=== PATIENT | male | born 1980 | race Caucasian/White ===

== ENCOUNTER 2020-02-07 20:00 | Outpatient (CLI) | payer OTHER, SELFPAY | END 2020-02-07 20:01 | disposition home or self-care (01) | LOC: SLEEP 02-08 08:25 | PROVIDERS: Family Provider Emergency Medicine Emergency Medical Services; Visit Provider Emergency Medicine Emergency Medical Services | DX: G47.33 Obstructive sleep apnea (adult) (pediatric) (principal); R06.83 Snoring; R53.83 Other fatigue | CPT/HCPCS: 95811 ==

== ENCOUNTER → 2021-01-28 08:18 | Outpatient (BNVA) | payer OTHER, SELFPAY | PROVIDERS: Family Provider Emergency Medicine Emergency Medical Services; PCP Emergency Medicine Emergency Medical Services; Referring Provider Emergency Medicine Emergency Medical Services; Visit Provider Anesthesiology Pain Medicine | DX: M54.12 Radiculopathy, cervical region (principal); M47.812 Spondylosis without myelopathy or radiculopathy, cervical region; M79.621 Pain in right upper arm; M79.622 Pain in left upper arm; F17.210 Nicotine dependence, cigarettes, uncomplicated; Z79.891 Long term (current) use of opiate analgesic | CPT/HCPCS: 99205 ==

== ENCOUNTER 2021-02-15 15:45 | Outpatient (CLI) | payer OTHER, SELFPAY ==
--- NOTE | 2021-02-15 16:00 | MR_ITS ---
WS: [id number] MRI CERVICAL SPINE NONCONTRAST HISTORY: M54.12 - Radiculopathy, cervical region COMPARISON: 04/04/2019 Technique: Multiplanar, multisequence noncontrast imaging of the cervical spine. Significant artifact at the C5-6 level obscuring detail to the vertebral body and the cervical cord. Prior anterior cervical fusion at the C5-6 level. No acute fracture or edema in the remaining visuali zed bodies. No disc desiccation. Craniocervical junction, C1 and C2 relationship, odontoid process and soft tissues are normal. C2-C3: Small LEFT foraminal disc osteophyte complex causing mild LEFT foraminal stenosis. C3-C4: Mild osteophytic ridging and small disc osteophyte complex causing mild LEFT foraminal narrowi ng. C4-C5: Disc or disc osteophyte complex is moderate extending into the proximal LEFT foramen and abutt ing the LEFT lateral thecal sac and cord. Moderate encroachment upon the exiting nerve root on the LE FT. C5-C6: This disc level is completely obscured by artifact. C6-C7: Very mild osteophytic ridging and/or disc bulging. No significant stenosis. C7-T1: Normal. Paraspinal soft tissue are normal. MR/MR cervical spin wo con* [id number] IMPRESSION: 1. Status post anterior cervical fusion at C5-6. There is significant hardware artifact disc at this level obscuring detail. Significant disc protrusions or stenosis cannot be excluded at the C5-6 level. 2. Disc with disc osteophyte complex causing moderate stenosis and encroachmen t upon the proximal LEFT foramen and mild abutment on the LEFT lateral thecal s ac and cord at C4-5. Not evident on the prior study. 3. Mild LEFT foraminal stenosis at C2-3 and C3-4 due to disc and osteophyte di crispine.
== END 2021-02-15 15:46 | disposition home or self-care (01) ==
LOC: RADSHAW 15:48
PROVIDERS: PCP Emergency Medicine Emergency Medical Services; Visit Provider Anesthesiology Pain Medicine
DX: M54.12 Radiculopathy, cervical region (principal); M43.22 Fusion of spine, cervical region; M25.78 Osteophyte, vertebrae; M48.02 Spinal stenosis, cervical region
CPT/HCPCS: 72141

== ENCOUNTER → 2021-02-21 08:30 | Outpatient (BNVA) | payer OTHER, SELFPAY | PROVIDERS: PCP Emergency Medicine Emergency Medical Services; Visit Provider Anesthesiology Pain Medicine | DX: G89.29 Other chronic pain (principal); M47.812 Spondylosis without myelopathy or radiculopathy, cervical region; M54.12 Radiculopathy, cervical region; M43.12 Spondylolisthesis, cervical region; F17.210 Nicotine dependence, cigarettes, uncomplicated | CPT/HCPCS: 99215 ==

== ENCOUNTER 2021-02-21 09:20 | Outpatient (CLI) | payer OTHER, SELFPAY ==
--- NOTE | 2021-02-21 09:28 | XR_ITS ---
WS: [id number] CERVICAL SPINE 5 VIEWS HISTORY: M47.812 - Spondylosis without myelopathy or radiculopathy... COMPARISON: None available. Lateral, AP and flexion-extension views. Marked straightening of the normal cervical lordosis. Interbody spacer at C5-6. With flexion and exte nsion no instability. No change in alignment of the interbody spacer. The odontoid is not imaged. No fractures. No soft tissue abnormality. XR/XR cervical spine 4-5V [id number] IMPRESSION: 1. Marked straightening of the normal cervical lordosis. 2. No cervical instability. 3. Interbody spacer at C5-6 remains in good position.
== END 2021-02-21 09:21 | disposition home or self-care (01) ==
PROVIDERS: PCP Emergency Medicine Emergency Medical Services; Visit Provider Anesthesiology Pain Medicine
DX: M47.812 Spondylosis without myelopathy or radiculopathy, cervical region (principal)
CPT/HCPCS: 72050

== ENCOUNTER → 2021-03-07 08:59 | Outpatient (BNVA) | payer OTHER, SELFPAY | PROVIDERS: PCP Emergency Medicine Emergency Medical Services; Visit Provider Anesthesiology Pain Medicine | DX: G89.29 Other chronic pain (principal); M47.812 Spondylosis without myelopathy or radiculopathy, cervical region; M54.12 Radiculopathy, cervical region; M79.601 Pain in right arm; M79.602 Pain in left arm; Z79.891 Long term (current) use of opiate analgesic | CPT/HCPCS: 99214 ==

== ENCOUNTER → 2021-03-18 13:41 | Outpatient (BNVA) | payer OTHER, SELFPAY | PROVIDERS: PCP Emergency Medicine Emergency Medical Services; Visit Provider Orthopaedic Surgery | DX: Z01.818 Encounter for other preprocedural examination (principal); Z20.822 Contact with and (suspected) exposure to COVID-19 | CPT/HCPCS: 87635 ==

== ENCOUNTER 2021-03-22 05:28 | Day surgery (SDC) | payer OTHER, SELFPAY ==
[2021-03-18 12:18] VITALS: BMI 40.7
--- NOTE | 2021-03-18 12:21 | ANES.PREANE2 ---
Pre-Anesthetic Assessment Pre-Anesthetic Assessment: Height/Weight: Height 1.8 m Weight 132.449 kg Proposed Procedure: Operation Date: 03/22/21 07:00 Proposed Procedures p posterior spine fusion at C5-6 52182, 04506, 29049, 35648, M47.812(Not Applicable) - Guy Bolanos, DO Was Beta Rock taken within 24 hours: N/A Was Clonidine taken within 24 hours: Yes Social: Social History: Tobacco and No alcohol Exam: Pre-Anes Outpt Exam: alert, oriented x 3 and regular rate & rhythm Airway: Submandibular: WNL Cervical ROM: WNL MP: 2 Dentition: Chipped Pulmonary: Pulmonary: COPD CV/HEM: CV/HEM: HTN Metabolic: Metabolic: Morbid obesity Musc/skel: Musc/skel: Lower Back Pain Anesthetic Plan: ASA status: 3 Anesthesia: General Risk of > 500 ml blood loss (7ml/kg in children): No PFSH Anesthesia PFSH: Family History Grandmother Diabetes Cancer Social History Alcohol intake: former Data Anesthesia Cardiac Studies: No Data to Display
[2021-03-22] VITALS (14 sets, daily range): BP systolic 123–165; BP diastolic 84–115; PULSE 91–109; RESP 12–26; TEMP 36.1–36.9; O2SAT 92–98
--- NOTE | 2021-03-22 | SCC_ITS ---
Procedure Done: 1. C5-C6 posterior spine fusion 2. C5-C6 instrumentation 3. Laminectomy C5/6 with partial facetectomy and foraminotomy 4. Autograft 5. Allograft 6. application and removal of Clark tongs 14.1 seconds of fluoroscopic guidance, for a cumulative dose of 8.96 mGy, was provided to Dr. Bolanos by the radiology department. C-arm images of the cervical spine were saved for the patient's permanent record. RAINAD
--- NOTE | 2021-03-22 | XR_ITS ---
WS: [id number] XR cervical spine 3V* [id number] REASON FOR EXAM: cervical fusion FINDINGS: Previous placement of intervertebral body device at C5-C6. There is now been pedicle screw placement at C5 and C6 bilaterally. Surgical appliances all appear in proper position and alignment. XR/XR cervical spine 3V* [id number] IMPRESSION: Pedicle screw placement at C5-C6 as above.
[2021-03-22] MEDS: sodium chloride 0.9% 1,000 ML 30 ML IV (06:26)
[2021-03-22] MEDS: fentaNYL 50 mcg/mL INJ 2mL 100 MCG IVP (06:35)
--- NOTE | 2021-03-22 06:42 | W.PM.OPSUD ---
Surgery/Procedure H&P Update DATE OF PROCEDURE: March 22, 2021 DATE H&P PERFORMED: 03/05/21 H&P UPDATE INFORMATION: I have reviewed H&P completed within last 30 days, I have examined patient prior to procedure and No changes to prior documentation PREOP DIAGNOSIS: cervical stenosis PLANNED PROCEDURE: Operation Date: 03/22/21 07:00 Proposed Procedures p posterior spine fusion at C5-6 92233, 85436, 83658, 69341, M47.812(Not Applicable) - Guy Bolanos DO
--- NOTE | 2021-03-22 07:21 | P.ANESUD_ITS ---
Pre-Anesthetic Update Pre-Anesthetic Assessment: Date of Surgery/Procedure: 03/22/21 Preop Ericka gnosis: cervical stenosis Proposed Procedure: Operation Date: 03/22/21 07:00 Proposed Procedures p posterior spine fusion at C5-6 90960, 60278, 19452, 69537, M47.812(Not Applicable) - Guy Bolanos, DO Any changes to Pre-Anesthetic Assessment?: No Last Intake: Intake Last Liquid Date 03/21/21 Last Liquid Time 18:00 Last Solid Date 03/21/21 Last Solid Time 18:00 Vitals: Temperature 97.6 F 03/22/21 06:02 Temperature Source Temporal Artery S can 03/22/21 06:02 Pulse Rate 109 H 03/22/21 06:02 Respiratory Rate 16 03/22/21 06:35 Respiratory Effort 03/22/21 06:35 Respiratory Depth Normal 03/22/21 06:35 Respiratory Patter n Apnea 03/22/21 06:35 Blood Pressure 132/96 03/22/21 06:02 Blood Pressure Amelia n 108 03/22/21 06:02 Pulse Oximetry 96 03/22/21 06:02 Oxygen Delivery Me thod 03/22/21 06:02 Exam: Pre-Anes Outpt Exam: alert, oriented x 3, clear to auscultation bilat erally and regular rate & rhythm Cardiac Studies: No Data to Display
[2021-03-22] MEDS: vancomycin 1,000 MG SDV 1000 MG (08:02)
[2021-03-22] MEDS: neomycin-poly-bacitracin oint 28 gm 28 APPLIC (08:02)
--- NOTE | 2021-03-22 09:53 | P.OP_ITS ---
Operative Report Date of procedure: March 22, 2021 Pre-op Diagnosis: cervical stenosis Post-op diagnosis: same Procedure Done: 1. C5-C6 posterior spine fusion 2. C5-C6 instrumentation 3. Laminectomy C5/6 with partial facetectomy and foraminotomy 4. Autograft 5. Allograft 6. application and removal of Clark tongs Surgeon: Guy Bolanos Anesthesia: General Estimated blood loss (mL): 50 Condition: stable Disposition: PACU Procedure: 1. C5-C6 posterior spine fusion 2. C5-C6 instrumentation 3. Laminectomy C5/6 with partial facetectomy and foraminotomy 4. Autograft 5. Allograft 6. application and removal of Clark tongs Patient is brought to the operative suite after undergoing anesthesia he had application of the Clark tongs. This was done by placing the tongs superior to the external auditory meatus and applying pressure. Once these were attached then patient was flipped into the prone position all areas impingement were well-padded. Patient's head was attached to the table. The posterior cervical neck was prepped and draped in normal sterile fashion. Skin incision made over the C5-6 layer. Subperiosteal dissection was made from C5-C6 out to the edges of the lateral masses. Retractors were placed. Then screws were placed at C5 and C6 bilaterally as are lateral mass screws. This was done by using a drill. Followed by placing screws these were 16mm screws placed bilaterally at both C5 and C6. Then attention was brought to performing the laminectomy. Rongeur was used to take down the spinous process and then the high-speed drill using a microscope was brought in was used to perform the laminectomy once the laminectomy was completed this was completed with the Kerrison rongeurs. The ligamentum flavum was taken down from C5-C6. Then attention was brought to the left facet joint. The medial aspect of facet joints taken down with a high- speed bur and Kerrison rongeurs. And then the foramen was opened using a 2 and 3 Kerrison. To allow for the C6 nerve root to be completely freed up. Once is complete freed up then a curved curette was used to trace it out the foramen and once it was felt that the C6 nerve was completely freed up wounds were irrigated. The lateral gutters of the lateral masses C5 and 6 were decorticated using high-speed bur. And the auto and allograft were packed this was osteoamp mixed with the autograft. And then wounds were closed with Vicryl 0-strata fix 2 -0 strata fix and nylon suture. Sterile dressing dressings were applied. Patient was then flipped in the supine position the Clark tongs were removed and patient had a cervical collar attached and then patient was transferred to the PACU in stable condition.
[2021-03-22] MEDS: HYDROmorphone 1 mg/mL INJ 1 mL 0.5 MG IVP ×2 (10:18→10:28)
[2021-03-22] MEDS: HYDROcodone-acetaminophen 10-325 mg Tablet 1 TAB PO (11:02)
--- NOTE | 2021-03-22 11:38 | ANE.PACU2 ---
Inpatient post-anesthesia follow up: Airway intact: Yes Vital signs: Temperature 98.3 F Pulse Rate 91 Respiratory Rate 16 Blood Pressure 123/92 Pulse Oximetry 95 Oxygen Delivery Me thod Room Air Oxygen Flow Rate 8 Fraction of Inspir ed Oxygen Hydration adequate: Yes Nausea and vomiting: No Pain level: 3 Mental status: Baseline
== END 2021-03-22 12:05 | disposition home or self-care (01) ==
PROVIDERS: PCP Emergency Medicine Emergency Medical Services; Visit Provider Orthopaedic Surgery
PROC: (CPT 20930; principal; 2021-03-22 07:00)
DX: M48.02 Spinal stenosis, cervical region (principal); J44.9 Chronic obstructive pulmonary disease, unspecified; I10 Essential (primary) hypertension; E66.01 Morbid (severe) obesity due to excess calories; Z68.41 Body mass index [BMI] 40.0-44.9, adult; Z83.3 Family history of diabetes mellitus
CPT/HCPCS: 20930; 20936; 22600; 22614; 22840; 22853; 63045; 72040; 76000; 96374; 97110; C1713; C9359; J0330; J0690; J1100; J1170; J2250; J2405; J2704; J3010; J3370; J3490; J7030; L0174

== ENCOUNTER 2021-04-12 09:24 | Outpatient (CLI) | payer OTHER, SELFPAY ==
--- NOTE | 2021-04-12 09:36 | XR_ITS ---
WS: [id number] Cervical spine, 3 views, 04/12/2021 Clinical Data: M54.12 - Radiculopathy, cervical region Comparison: Cervical spine, 02/21/2021. Findings: No compression fractures are seen. The disc heights are normal. There is an intervertebral disc spacer at C5-C6. There is a posterior fusion at C5-C6 with bilateral pedicle screws and connecti ng rods. There is no prevertebral soft tissue swelling. The odontoid is unremarkable. The soft tissue s of the neck and the lung apices are normal. XR/XR cervical spine 3V* [id number] Impression: 1. Posterior fusion at C5-C6. 2. Disc spacer at C5-C6 unchanged.
== END 2021-04-12 09:25 | disposition home or self-care (01) ==
PROVIDERS: PCP Emergency Medicine Emergency Medical Services; Visit Provider Orthopaedic Surgery
DX: M54.12 Radiculopathy, cervical region (principal); M43.22 Fusion of spine, cervical region
CPT/HCPCS: 72040

== ENCOUNTER → 2021-05-07 07:58 | Outpatient (BNVA) | payer OTHER, SELFPAY | PROVIDERS: PCP Emergency Medicine Emergency Medical Services; Visit Provider Orthopaedic Surgery | DX: M54.12 Radiculopathy, cervical region (principal); M47.812 Spondylosis without myelopathy or radiculopathy, cervical region | CPT/HCPCS: 72040 ==

== ENCOUNTER → 2021-06-14 08:00 | Outpatient (BNVA) | payer OTHER, SELFPAY | PROVIDERS: PCP Emergency Medicine Emergency Medical Services; Visit Provider Orthopaedic Surgery | DX: Z47.89 Encounter for other orthopedic aftercare (principal); Z98.1 Arthrodesis status | CPT/HCPCS: 72040 ==

== ENCOUNTER → 2021-06-20 12:36 | Outpatient (BNVA) | payer OTHER, SELFPAY | PROVIDERS: PCP Emergency Medicine Emergency Medical Services; Visit Provider Anesthesiology Pain Medicine | DX: G89.29 Other chronic pain (principal); M47.812 Spondylosis without myelopathy or radiculopathy, cervical region; M54.12 Radiculopathy, cervical region; M79.602 Pain in left arm; M79.601 Pain in right arm; M54.9 Dorsalgia, unspecified; Z98.1 Arthrodesis status; Z79.891 Long term (current) use of opiate analgesic | CPT/HCPCS: 99214 ==

== ENCOUNTER → 2021-07-22 10:56 | Outpatient (BNVA) | payer OTHER, SELFPAY | PROVIDERS: PCP Emergency Medicine Emergency Medical Services; Visit Provider Anesthesiology Pain Medicine | DX: G89.29 Other chronic pain (principal); M47.812 Spondylosis without myelopathy or radiculopathy, cervical region; M54.12 Radiculopathy, cervical region; M79.601 Pain in right arm; M79.602 Pain in left arm; Z98.1 Arthrodesis status; Z79.891 Long term (current) use of opiate analgesic | CPT/HCPCS: 99214 ==

== ENCOUNTER → 2021-08-12 11:09 | Outpatient (BNVA) | payer OTHER, SELFPAY | PROVIDERS: PCP Emergency Medicine Emergency Medical Services; Visit Provider Anesthesiology Pain Medicine | DX: G89.29 Other chronic pain (principal); M47.812 Spondylosis without myelopathy or radiculopathy, cervical region; M54.12 Radiculopathy, cervical region; M79.601 Pain in right arm; M79.602 Pain in left arm; Z98.1 Arthrodesis status; Z79.891 Long term (current) use of opiate analgesic | CPT/HCPCS: 99214 ==

== ENCOUNTER → 2021-08-13 10:29 | Outpatient (BNVA) | payer OTHER, SELFPAY | PROVIDERS: PCP Emergency Medicine Emergency Medical Services; Visit Provider Physician Assistant | DX: Z98.1 Arthrodesis status (principal); Z51.89 Encounter for other specified aftercare | CPT/HCPCS: 72040 ==

== ENCOUNTER → 2021-09-09 10:50 | Outpatient (BNVA) | payer OTHER, SELFPAY | PROVIDERS: PCP Emergency Medicine Emergency Medical Services; Visit Provider Anesthesiology Pain Medicine | DX: M47.812 Spondylosis without myelopathy or radiculopathy, cervical region (principal); M54.12 Radiculopathy, cervical region; Z98.1 Arthrodesis status; F17.210 Nicotine dependence, cigarettes, uncomplicated; Z79.891 Long term (current) use of opiate analgesic | CPT/HCPCS: 99214 ==

== ENCOUNTER → 2021-09-17 10:23 | Outpatient (BNVA) | payer OTHER, SELFPAY | PROVIDERS: PCP Emergency Medicine Emergency Medical Services; Visit Provider Orthopaedic Surgery | DX: M47.22 Other spondylosis with radiculopathy, cervical region (principal); M47.812 Spondylosis without myelopathy or radiculopathy, cervical region; Z98.1 Arthrodesis status | CPT/HCPCS: 72040 ==

== ENCOUNTER 2021-10-03 13:15 | Emergency (ER) | payer OTHER, SELFPAY ==
[2021-10-03 13:48] VITALS: BP 145/98; PULSE 138; RESP 18; TEMP 36.6; O2SAT 96; BMI 40.4
--- NOTE | 2021-10-03 14:55 | CT_ITS ---
WS: [id number] CT CERVICAL SPINE HISTORY: Fall and hit back of neck and head on steps TECHNIQUE: Contiguous 2.5 mm axial imaging performed through the entire cervical spine. Sagittal and coronal reformats also performed. All CT scans at [facility] use at least one of these dose o ptimization techniques: automated exposure control; mA and/or kV adjustment per patient size (include s targeted exams where dose is matched to clinical indication); or iterative reconstruction. DLP: 859.4 mGy.cm COMPARISON: 04/26/2017 Straightening and slight reversal normal cervical lordosis centered at C5-6. At C5-6 there is posteri or fusion hardware between the facet joints. There is an interbody spacer at C5-6. No change in posit ion of the spacer as compared to 09/17/2021. Craniocervical junction is normally aligned. Facet joints are normally aligned. No acute fractures are identified. Mild LEFT facet joint narrowing at C3-4 due to osteophytes. Osteophytic ridging at C4-5 causing mild foraminal narrowing. Cervical canal is diff icult to visualize at the C5-C6 level due to the hardware. Posterior laminectomy defect is present. Paraspinal soft tissues are negative. CT/CT cervical spin wo con* [id number] IMPRESSION: 1. No acute cervical spine fracture. 2. Posterior facet joint fusion with screws and rods at C5-C6. Interbody space r at C5-6 remains in good position.
--- NOTE | 2021-10-03 14:55 | CT_ITS ---
WS: [id number] CT HEAD NONCONTRAST HISTORY: Fall and hit back of neck and head on steps TECHNIQUE: Contiguous axial imaging performed through the brain in 2.5 mm imaging. Bone and soft tiss ue windows. Sagittal and coronal reformats reviewed. All CT scans at [facility] use at least one of these dose optimization techniques: automated exposure control; mA and/or kV adjustment per pa tient size (includes targeted exams where dose is matched to clinical indication); or iterative recon struction. DLP: 1024.56 mGy.cm COMPARISON: None available. No acute intracranial hemorrhage, midline shift or mass effect. No atrophy or prior infarcts or herniation. Ventricles: Normal size with no hydrocephalus. Paranasal sinuses: As visualized are clear. Mastoid air cells: Well pneumatized. Calvarium and scalp: Skull is intact with no soft tissue edema or swelling. CT/CT head wo con* [id number] IMPRESSION: Negative head CT.
--- NOTE | 2021-10-03 16:16 | W.ED.FALL ---
HPI - Fall General: Chief Complaint: Fall Stated Complaint: Fell Thursday hit back of neck, hurting bad Time Seen by Provider: 10/03/21 15:59 History of Present Illness: Patient is a 41-year-old male comes to the ED with neck pain after fall. Patient has a history of cervical spinal arthrodesis and spondylosis. Patient history of past cervical spinal fusion surgery and currently has some hardware in cervical spine that he was concerned could have been damaged. patient says approximately 4 days ago he was walking down some steps and he slipped. He fell back and hit the back of his neck and head on a step. Denies any loss of consciousness. He is having pain in his neck that he rates a 9 out of 10. Denies any other symptoms. He currently sees Dr. Bolanos and is scheduled for a follow-up appointment with him for his past cervical spine Associated symptoms-after fall: Reports neck pain; Denies abdominal pain, chest pain, headache(s) or hematuria Review of Systems Const: Denies: fever(s), chills or fatigue Eyes: Denies: change in vision or eye discomfort ENMT: Denies: throat pain, odynophagia, nasal discharge or nasal congestion Card: Denies: chest pain, palpitations, edema, swelling of feet/ankles, dyspnea on exertion or orthopnea Resp: Denies: dyspnea, productive cough or non-productive cough GI: Denies: abdominal pain, nausea, vomiting, diarrhea, constipation or hematochezia : Denies: flank pain, difficulty urinating, dysuria or hematuria Musc: Reports: neck pain; Denies: back pain or extremity swelling Skin/Breast: Denies: rash or new lesions Neuro: Denies: headache(s), numbness in extremities or weakness in extremities PFS ED PFSH: Medical History Psychiatric care Surgical History H/O neck surgery Family History Grandmother Diabetes Cancer Social History Smoking and tobacco status: current every day smoker cigarettes Packs smoked per day: 0.5 Alcohol intake: former Lives independently: Yes History of recent travel: No Physical Exam Const: COMMON NORMALS: no acute distress, patient oriented x3 and alert GENERAL APPEARANCE: cooperative and comfortable HENMT: COMMON NORMALS: normocephalic HEAD & SCALP: normocephalic MOUTH: Normal oral and palatal mucosa present THROAT: posterior oropharynx normal and uvula midline Neck/C-Spine: COMMON NORMALS: supple GENERAL: Yes normal visual inspection CERVICAL SPINE: Yes pain with cervical ROM, Yes Cervical spine tenderness, Yes Paracervical muscle tenderness bilateral and Yes Trapezius muscle tenderness bilateral Resp: COMMON NORMALS: normal respiratory effort, No retractions, No use of accessory muscles and clear to auscultation bilaterally AUSCULTATION: clear to auscultation bilaterally Cardio: COMMON NORMALS: regular rate, regular rhythm, S1 normal heart sound present, S2 normal heart sound present, No gallops present (Cardio), No clicks present (Cardio), No murmurs present (Cardio) and Peripheral pulses 2+ throughout RATE: regular rate RHYTHM: regular rhythm HEART SOUNDS: S1 normal heart sound present and S2 normal heart sound present PERIPHERAL PULSES: Peripheral pulses 2+ throughout GI: COMMON NORMALS: Normal to inspection, nondistended, normoactive bowel sounds present, Soft to palpation, non-tender and no masses PALPATION: Yes Soft to palpation : COMMON NORMALS: Yes no CVA tenderness BLADDER/KIDNEY EXAM: Yes no CVA tenderness Back/Pelvis: COMMON NORMALS: no CVA tenderness Extremity: COMMON NORMALS: normal to inspection Neuro: COMMON NORMALS: patient oriented x3, CN's II-XII intact bilaterally, moves all extremities and no focal motor deficits SENSORIUM/ORIENTATION: Yes alert MOTOR EXAM: 5/5 motor strength present throughout Skin: GENERAL SKIN EXAM: dry skin Course Vital Signs: Vital signs: Vital Signs Temperature 98.7 F 10/03/21 16:30 Pulse Rate 124 H 10/03/21 16:30 Respiratory Rate 19 H 10/03/21 16:30 Blood Pressure 143/100 10/03/21 16:30 Pulse Oximetry 96 10/03/21 16:30 MDM - Fall Medical Decision Making Patient is a 41-year-old male who comes to the ED with neck pain after falling while going down stairs and the back of his head and neck hit a stair. Denies any loss of consciousness. Patient has a history of a cervical spine fusion surgery and there is hardware still in cervical spine and wanted to get that checked after fall causing worsening neck pain. Vitals are stable. Patient has some bilateral paracervical muscle tenderness along with bilateral trapezius muscle tenderness. Rest of exam is benign. CT of head and cervical spine showed no acute fractures or findings. The hardware in patient's cervical spine is intact and in good position. Patient diagnosed with cervical pain told to follow-up with Dr. Bolanos at his next scheduled appointment. He was sent home with a prescription for hydrocodone for his pain. Return to ED precautions given. Patient understood and agree with plan. Lab Data Radiology Impressions Cervical Spine CT 10/03/21 14:55 IMPRESSION: 1. No acute cervical spine fracture. 2. Posterior facet joint fusion with screws and rods at C5-C6. Interbody spacer at C5-6 remains in good position. Head CT 10/03/21 14:55 IMPRESSION: Negative head CT. Discharge Plan Discharge Patient Disposition: Home Clinical Impression: Cervical pain Condition: Stable Prescriptions: No Action hydrocodone-acetaminophen 5-325 mg tablet 1 tab PO Q4H PRN (Reason: pain) 7 Days Qty: 30 0RF rosuvastatin 10 mg tablet 10 mg PO DAILY 0RF hydrocodone-acetaminophen 5-325 mg tablet 1 tab PO BID PRN (Reason: pain) 30 Days Qty: 60 0RF lisinopril 40 mg tablet 40 mg PO DAILY 0RF duloxetine 30 mg capsule,delayed release(DR/EC) 30 mg PO DAILY 0RF naproxen [EC-Naproxen] 500 mg tablet,delayed release (DR/EC) 500 mg PO BID 0RF clonidine HCl 0.1 mg tablet 0.1 mg PO BID 0RF cyclobenzaprine 10 mg tablet 10 mg PO TID 0RF Algal [place]-3 DHA 200 mg capsule PO 0RF Discharge Orders: Discharge ED (Routine); Ordered 10/03/21 Ordered By: John Johnson Referrals: Ronny Quinn, DO [Primary Care Provider] - Discharge Diet: Regular Discharge Activity: Increase activity as tolerated Patient Instructions: Neck Pain (ED), Opioid Safety Activity Restrictions/Additional Instructions: Follow-up with Dr. Bolanos at your next scheduled appointment. Take medications as prescribed. Return to the ER or your medical provider if condition worsens. Please read and understand discharge instructions. Thank you for choosing [facility] for your healthcare needs today. Please realize this is an emergency room and that we are providing you with a medical screening exam and this may not be complete and all inclusive of all the testing and or work up that you may need to determine your ailment or severity of your illness. It is very important that you follow up as instructed or that you return to the Emergency Department should you have concerns or if your condition changes or worsens in any way. Coding Level of Care Code ED Ladle Repairer for Josh Fwdionna Exam Comprehensive
[2021-10-03 16:30] VITALS: BP 143/100; PULSE 124; RESP 19; TEMP 37.1; O2SAT 96
== END 2021-10-03 16:49 | disposition home or self-care (01) ==
PROVIDERS: Emergency Provider Physician Assistant; PCP Emergency Medicine Emergency Medical Services
DX: M54.2 Cervicalgia (principal); F17.210 Nicotine dependence, cigarettes, uncomplicated
CPT/HCPCS: 70450; 72125; 99283; 99291; 99292

== ENCOUNTER → 2021-10-08 09:36 | Outpatient (BNVA) | payer OTHER, SELFPAY | PROVIDERS: PCP Emergency Medicine Emergency Medical Services; Visit Provider Orthopaedic Surgery | DX: Z98.1 Arthrodesis status (principal); M47.22 Other spondylosis with radiculopathy, cervical region | CPT/HCPCS: 72040 ==

== ENCOUNTER 2021-10-14 09:57 | Outpatient (CLI) | payer OTHER, SELFPAY ==
--- NOTE | 2021-10-14 10:00 | IR_ITS ---
WS: [id number] MYELOGRAM CERVICAL SPINE Fluoroscopic guided cervical myelogram CLINICAL INFORMATION: M47.22 - Other spondylosis with radiculopathy, cervical r... COMPARISON: None. TECHNIQUE: The procedure, including risks, benefits, and complications, were discussed with the patie nt who agreed to proceed. A timeout was performed to confirm correct patient, procedure, and site. Using sterile technique, the patient was prepped and draped in the usual sterile fashion. After admin istration of local anesthesia using 1% preservative-free lidocaine and using fluoroscopic guidance, a 22-gauge spinal needle was advanced into the subarachnoid space at the L4-L5 level. Subsequently 13 cc of Omnipaque 240 was administered into the thecal sac. The needle was removed and hemostasis was a chieved. Subsequently the table was tilted down and contrast flowed freely into the cervical spine. S pot fluoroscopic images were obtained. FLUOROSCOPIC TIME: 1.5 minutes. Spot fluoroscopic images demonstrate free flow of contrast into the cervical spine. Posterior screw f ixation with interconnecting rods C5-C6 with interbody fusion graft. Normal C1-C2 articulation. Heaven l alignment on the neutral view. No instability on flexion-extension. Please see CT myelogram report for additional detail. IR/IR myelogram sp cervical [id number] IMPRESSION: 1. Uncomplicated cervical myelogram 2. Posterior fusion with interconnecting rods at C5-C6 with interbody fusion g raft 3. No instability on flexion-extension.
--- NOTE | 2021-10-14 10:06 | CT_ITS ---
WS: [id number] CT CERVICAL MYELOGRAM TECHNIQUE: CT of the cervical spine coronal and sagittal reformatted images post intrathecal administ ration of contrast. CLINICAL INFORMATION: M47.22 - Other spondylosis with radiculopathy, cervical r... COMPARISON: CT cervical to 10/03 21 DLP: 619.[address] scans at [facility] use at least one of these dose optimization techniques: automated e xposure control; mA and/or kV adjustment per patient size (includes targeted exams where dose is matc hed to clinical indication); or iterative reconstruction. FINDINGS: Straightening of the normal cervical lordosis. No high-grade central canal narrowing. Prior postopera tive changes posterior screw fixation with interconnecting rods C5-C6. Interbody fusion grafts.No ani dence of hardware loosening. Hardware appears intact. C2-C3: No significant disc bulging. Spinal canal and foramen are patent. C3-C4: No significant disc bulging. Mild LEFT and no significant RIGHT foraminal narrowing. Spinal ca nal is patent. C4-C5: Disc osteophyte ridging eccentric to the LEFT. Moderate LEFT and no significant RIGHT foramina l narrowing. Slight indentation the LEFT ventral cervical cord. C5-C6: Prior postoperative changes interbody fusion. Moderate bilateral bony foraminal narrowing. Spinal canal is patent. Laminectomy defects with posteri or fusion. C6-C7: Filling of the LEFT C6-C7 neural foramen with severe LEFT foraminal narrowing. Slight contact of the LEFT ventral cervical cord. Recommend correlation for LEFT C7 nerve root symptoms. RIGHT dayana en is patent. Mild central canal stenosis. C7-T1: No significant disc bulging. Spinal canal and foramen are patent. Visualized posterior fossa structures: Normal. CT/CT cervical spine w con [id number] IMPRESSION: 1. Straightening of the normal cervical lordosis with prior postoperative ascencio ges posterior fusion C5-C6 with interbody fusion graft. 2. No high-grade central canal stenosis. 3. Soft tissue filling of the LEFT C6-C7 neural foramen with severe LEFT dayana inal narrowing. Recommend correlation LEFT C7 nerve root symptoms. This is like ly due to postoperative change or eccentric disc material 4. Mild central canal stenosis C6-C7 with slight indentation on the LEFT ventr al cervical cord. 5. Mild to moderate bony foraminal narrowing LEFT C3-C4 and C4-C5. Moderate LE FT bony foraminal narrowing C4-C5. 6. Moderate LEFT greater than RIGHT bony foraminal narrowing C5-C6.
[2021-10-14] MEDS: iohexol 240 mg/mL 50 mL Btl INTRATHECA (11:57)
== END 2021-10-14 09:58 | disposition home or self-care (01) ==
PROVIDERS: PCP Emergency Medicine Emergency Medical Services; Visit Provider Orthopaedic Surgery
DX: M47.22 Other spondylosis with radiculopathy, cervical region (principal); M48.02 Spinal stenosis, cervical region; Z98.1 Arthrodesis status
CPT/HCPCS: 62302; 72040; 72126

== ENCOUNTER → 2021-10-15 13:36 | Outpatient (BNVA) | payer OTHER, SELFPAY | PROVIDERS: PCP Emergency Medicine Emergency Medical Services; Visit Provider Orthopaedic Surgery | DX: Z20.822 Contact with and (suspected) exposure to COVID-19 (principal) | CPT/HCPCS: 87635 ==

== ENCOUNTER 2021-10-18 05:36 | Day surgery (SDC) | payer OTHER, SELFPAY ==
[2021-10-17 14:23] VITALS: BMI 40.4
[2021-10-18] VITALS (7 sets, daily range): BP systolic 131–180; BP diastolic 95–141; PULSE 104–116; RESP 12–20; TEMP 36.1–36.8; O2SAT 91–99
--- NOTE | 2021-10-18 | XR_ITS ---
WS: [id number] Exam: XR cervical spine 3V* [id number] Date/Time of Exam: 10/18/2021 12:00 AM Reason For Exam: spondylosis with myelopathy Limited intraoperative C-arm images of the cervical spine are submitted for evaluation. There is interbody fusion at C5-6 with pedicle screws and posterior rods. There is also anterior plat e and screw fixation at this same level with a disc spacer.
--- NOTE | 2021-10-18 | SCC_ITS ---
Procedure done: 1. Anterior diskectomy C5/6 2. Insertion of cage C5/6 3. Instrumentation with anterior plate from C5-C6 4. Use of allograft 5. removal of disk replacement (deep cervical hardware) 11.7 seconds of fluoroscopic guidance, for a cumulative dose of 4.84 mGy, was provided to Dr. Bolanos by the radiology department. C-arm images of the cervical spine were saved for the patient's permanent record. QUE
--- NOTE | 2021-10-18 06:30 | P.ANESASSM_ITS ---
Pre-Anesthetic Assessment Height/Weight: Height 1.8 m Weight 131.542 kg Temp Pulse Resp BP Pulse Ox 98.2 F 116 H 18 161/121 95 10/18/21 06:22 10/18/21 06:22 10/18/21 06:22 10/18/21 06:22 10/18/21 06:22 Preop Diagnosis: Cervical Spondylosis with Myelopathy Operation Date: 10/18/21 07:00 Proposed Procedures p Anterior Cervical Discectomy & Fusion 79896/M47.12 other spondylosis with myl/cervcal removal of disc replacement(Not Applicable) - Guy Bolanos DO Familial anesthetic complications: NOne Was Beta Rock taken within 24 hours: N/A Was Clonidine taken within 24 hours: Yes Last intake: Intake Last Liquid Date 10/17/21 Last Liquid Time 20:00 Last Solid Date 10/17/21 Last Solid Time 19:00 Social Tobacco and No alcohol Exam alert, oriented x 3, clear to auscultation bilaterally and regular rate & rhythm Airway Mallampati: Class IV Dentition: chipped Pulmonary None reported CV/HEM Hypertension None reported Hepatic None reported GI None reported Metabolic Hyperlipidemia and Morbid Obesity [facility] None reported Neuropsych None reported Anesthetic Plan ASA status: 3 Anesthesia: General Risk of > 500 ml blood loss (7ml/kg in children): No Medications/Allergies Home Medications Medication Instructions Recorded Confirmed Last Taken Type clonidine HCl 0.1 mg tablet 0.1 mg PO BID 01/28/21 10/18/21 10/17/21 History cyclobenzaprine 10 mg tablet 10 mg PO TID 01/28/21 10/18/21 10/17/21 History duloxetine 30 mg capsule,delayed 30 mg PO DAILY 01/28/21 10/18/21 10/17/21 History release lisinopril 40 mg tablet 40 mg PO DAILY 01/28/21 10/18/21 10/17/21 History naproxen 500 mg tablet,delayed 500 mg PO BID 01/28/21 10/17/21 03/21/21 History release (EC-Naproxen) hydrocodone 5 mg-acetaminophen 325 1 tab PO Q4H PRN 7 Days #30 tab 04/16/21 10/18/21 10/18/21 Rx mg tablet docosahexaenoic acid 200 mg 1,000 mg PO DAILY 06/20/21 10/18/21 10/17/21 History capsule (Algal [place]-3 DHA) rosuvastatin 10 mg tablet 10 mg PO DAILY 07/22/21 10/18/21 10/17/21 History tramadol 50 mg tablet 50 mg PO Q6H PRN #40 tab 10/08/21 10/18/21 10/17/21 Rx Allergies Allergy/AdvReac Type Severity Reaction Status Date / Time gabapentin Allergy NAUSEA Verified 10/08/21 09:39 pregabalin [From Lyrica] Allergy NAUSEA Verified 10/08/21 09:39 topiramate [From Topamax] Allergy HIVES, Verified 10/08/21 09:39 [facility] [place] Anesthesia Medical History Psychiatric care Surgical History H/O neck surgery Family History Grandmother Diabetes Cancer Social History Smoking and tobacco status: current every day smoker cigarettes Packs smoked per day: 0.5 Alcohol intake: former Lives independently: Yes History of recent travel: No Data Anesthesia Cardiac Studies: No Data to Display
--- NOTE | 2021-10-18 06:48 | W.PM.OPSUD ---
Surgery/Procedure H&P Update DATE OF PROCEDURE: October 18, 2021 DATE H&P PERFORMED: 10/08/21 PREOP DIAGNOSIS: Cervical Spondylosis with Myelopathy PLANNED PROCEDURE: Operation Date: 10/18/21 07:00 Proposed Procedures p Anterior Cervical Discectomy & Fusion 04010/M47.12 other spondylosis with myl/cervcal removal of disc replacement(Not Applicable) - Guy Bolanos, DO
[2021-10-18] MEDS: sodium chloride 0.9% 1,000 ML 30 ML IV (06:53)
--- NOTE | 2021-10-18 08:07 | PC.NURSE ---
CALLED MOM TO NOTIFY HER THAT THE PROCEDURE HAD STARTED AND THAT THE PT WAS TOLERATING EVERYTHING WELL. I STATED THAT I WOULD CALL WITH ANOTHER UPDATE IN AN HOUR.
--- NOTE | 2021-10-18 09:02 | P.OP_ITS ---
Operative Report Date of procedure: October 18, 2021 Pre-op diagnosis: Preop Diagnosis Cervical Spondylosis with Myelopathy Post-op diagnosis: same Procedure done: 1. Anterior diskectomy C5/6 2. Insertion of cage C5/6 3. Instrumentation with anterior plate from C5-C6 4. Use of allograft 5. removal of disk replacement (deep cervical hardware) Surgeon: Guy Bolanos Regional Director Of Admissions: Frederick Mendieta Estimated blood loss (mL): 10 Procedure: 1. Anterior diskectomy C5/6 2. Insertion of cage C5/6 3. Instrumentation with anterior plate from C5-C6 4. Use of allograft 5. removal of disk replacement (deep cervical hardware) The patient was taken to the operating room, where he underwent general endotracheal anesthesia without complications. He was then positioned supine on the operating table, and all areas of impingement were well padded. The arms were carefully padded and tucked at his sides. A roll was placed between the shoulder blades.. An x-ray was done to determine the appropriate level for the skin incision. The entire neck was then sterilely prepped and draped in the usual fashion. Neuromonitoring was attached prior to prepping. A transverse skin incision was made and carried down to the platysma muscle. This was then split in line with its fibers. Blunt dissection was carried down medial to the carotid sheath and lateral to the trachea and esophagus until the anterior cervical spine was visualized. A needle was placed into a disc and an x-ray was done to determine its location. The longus colli muscles were then elevated bilaterally with the electrocautery unit. Self-retaining retractors were placed deep to the longus colli muscle. The previous cervical disc replacement was identified. A curved curette was used to get the poly out from the disc present. And then an osteotome was used to take down the metal from the superior and inferior endplates. The metal implant was then removed. Attention was brought to the C5/6 level that was confirmed on x-ray and is whe re the displacement was removed. A caspar pin was placed into the C5 vertebrae and the C6 vertebrae. The disk space was then distracted. The microscope was then brought in. A radical anterior discectomies were performed at C5/6 in the posterior aspect of the space. There was still a shelf of bone as well as disc. This area was then cleaned this included complete removal of the anterior annulus, nucleus, and posterior annulus. The posterior longitudinal ligament was removed as were the posterior osteophytes. Foraminotomies were then accomplished bilaterally. The posterior longitudinal ligament was taken down set for 1 small section. Where there was a bleb of the dura there was no CSF leak. However my concern was that there would be if I continued to take down the ligament further. At this point I placed a piece of DuraGen to protect it. This was done using a high speed win, kerrison rongeurs and curretes Once all of this was accomplished, the curved currette was used to check for any residual compression. The central canal was wide open as were the foramen. A high-speed bur was used to remove the cartilaginous endplates above and below the interspace. Bleeding cancellous bone was exposed. The disc space were measured and appropriate size cage were placed sterilely onto the field. Allograft graft was packed into the cages. The cage was then placed and there was good juxtaposition against the bleeding decorticated surfaces and good distraction of each interspace. Attention was brought to the next interspace. The Confluence pins were removed. Bone wax was used to prevent any bleeding from occurring at the pin sites. The appropriate size anterior cervical locking plate was chosen and bent into gentle lordosis. Two screws were then placed into each of the vertebral bodies at C5 and C6. There was excellent purchase. A final x-ray was done confirming good position of the hardware and Cages. The locking screws were then applied, also with excellent purchase. Following a final copious irrigation, there was good hemostasis and no dural leaks. The carotid pulse was strong. The wounds were then closed in layers using 2-0 Vicryl suture for the platysma muscle, 2-0 Vicryl suture for the subcutaneous tissue, and 4-0 monocryl suture in a subcuticular skin closure. Glue was placed followed by application of a sterile dressing. The drain was hooked to bulb suction. A soft collar was applied. The patient was then carefully returned to the supine position on his hospital bed where he was reversed and extubated and taken to the recovery room having tolerated the procedure well.
--- NOTE | 2021-10-18 09:20 | P.PCN_ITS ---
PACU note Narrative: VSS, Good respiratory effort, report to CATTLE RANCHER Exam: awake
--- NOTE | 2021-10-18 09:20 | PM.PACU ---
PACU note Narrative: VSS, Good respiratory effort, report to ROPE TOW OPERATOR Exam: awake
[2021-10-18] MEDS: HYDROcodone-acetaminophen 10-325 mg Tablet 1 TAB PO (09:50)
--- NOTE | 2021-10-18 12:38 | ANE.PACU2 ---
Inpatient post-anesthesia follow up: Airway intact: Yes Vital signs: Temperature 98.2 F Pulse Rate 110 Respiratory Rate 18 Blood Pressure 141/98 Pulse Oximetry 91 Oxygen Delivery Me thod Room Air Oxygen Flow Rate 8 Fraction of Inspir ed Oxygen Hydration adequate: Yes Nausea and vomiting: No Pain level: 2 Mental status: Baseline
== END 2021-10-18 10:29 | disposition home or self-care (01) ==
PROVIDERS: PCP Emergency Medicine Emergency Medical Services; Visit Provider Orthopaedic Surgery
PROC: 0RB30ZZ Excision of Cervical Vertebral Disc, Open Approach (ICD-10-PCS; CPT 22551; principal; 2021-10-18 07:00)
DX: M47.12 Other spondylosis with myelopathy, cervical region (principal); I10 Essential (primary) hypertension; E78.5 Hyperlipidemia, unspecified; E66.01 Morbid (severe) obesity due to excess calories; Z68.41 Body mass index [BMI] 40.0-44.9, adult
CPT/HCPCS: 20680; 20930; 22551; 22853; 51702; 72040; 76000; C1713; J0330; J0690; J1100; J2405; J2704; J3010; J3490; J7030; L0174

== ENCOUNTER → 2021-11-28 09:19 | Outpatient (BNVA) | payer OTHER, SELFPAY | PROVIDERS: PCP Emergency Medicine Emergency Medical Services; Visit Provider Orthopaedic Surgery | DX: Z47.89 Encounter for other orthopedic aftercare (principal); Z98.890 Other specified postprocedural states; Z98.1 Arthrodesis status | CPT/HCPCS: 72040; 99024 ==

== ENCOUNTER → 2022-01-09 09:27 | Outpatient (BNVA) | payer OTHER, SELFPAY | PROVIDERS: PCP Emergency Medicine Emergency Medical Services; Visit Provider Orthopaedic Surgery | DX: Z47.89 Encounter for other orthopedic aftercare (principal); Z98.890 Other specified postprocedural states; Z98.1 Arthrodesis status | CPT/HCPCS: 72040; 99024 ==

== ENCOUNTER → 2022-01-17 08:54 | Outpatient (BNVA) | payer OTHER, SELFPAY | PROVIDERS: PCP Emergency Medicine Emergency Medical Services; Visit Provider Psychiatry & Neurology Psychiatry | DX: F06.4 Anxiety disorder due to known physiological condition (principal); F41.0 Panic disorder [episodic paroxysmal anxiety] | CPT/HCPCS: 99204; 99214 ==

== ENCOUNTER → 2022-02-14 10:17 | Outpatient (BNVA) | payer OTHER, SELFPAY | PROVIDERS: PCP Emergency Medicine Emergency Medical Services; Visit Provider Psychiatry & Neurology Psychiatry | DX: F41.0 Panic disorder [episodic paroxysmal anxiety] (principal); F06.4 Anxiety disorder due to known physiological condition; F17.210 Nicotine dependence, cigarettes, uncomplicated | CPT/HCPCS: 99214 ==

== ENCOUNTER → 2022-02-18 10:23 | Outpatient (BNVA) | payer OTHER, SELFPAY | PROVIDERS: PCP Emergency Medicine Emergency Medical Services; Visit Provider Orthopaedic Surgery | DX: M54.2 Cervicalgia (principal); Z47.89 Encounter for other orthopedic aftercare | CPT/HCPCS: 72040; 99213 ==

== ENCOUNTER 2022-04-22 14:53 | Outpatient (CLI) | payer OTHER, SELFPAY ==
--- NOTE | 2022-04-22 15:30 | CT_ITS ---
WS: [id number] CT CERVICAL SPINE TECHNIQUE: Noncontrast CT of the cervical spine with coronal and sagittal reformatted images. CLINICAL INFORMATION: cervical pain COMPARISON: October 14, 2021 DLP: 433.[address] scans at [facility] use at least one of these dose optimization techniques: automated e xposure control; mA and/or kV adjustment per patient size (includes targeted exams where dose is matc hed to clinical indication); or iterative reconstruction. FINDINGS: Straightening of the normal cervical lordosis. Prior postoperative changes anterior cervical fusion w ith interbody fusion C5-C6. Dorsal lamina fusion at this level. Hardware appears intact. Evidence of bony bridging beyond the confines of the graft eccentric to the RIGHT. Interconnecting rods appear in tact. Fusion has been revised since October 14, 2021 with new anterior plate and screw fixation and interbody fusion graft. C2-C3: Normal. C3-C4: Moderate LEFT bony foraminal narrowing. Mild facet arthropathy. Spinal canal and RIGHT foramen are patent. C4-C5: Mild disc osteophytic ridging. Mild LEFT greater than RIGHT bony foraminal narrowing. Mild fac et arthropathy and uncovertebral joint hypertrophy. C5-C6: Postoperative changes anterior and posterior fusion. Spinal canal is patent. Mild bilateral ruma ny foraminal narrowing RIGHT greater than LEFT. C6-C7: Spinal canal and foramen are patent. Mild facet arthropathy with uncovertebral joint hypertrop hy. C7-T1: No significant disc bulging. Spinal canal and foramen are patent. Visualized posterior nasopharynx: Normal. Prevertebral soft tissues: Normal. CT/CT cervical spin wo con* [id number] IMPRESSION: 1. New anterior interbody fusion C5-C6. Stable posterior fusion at this level. Interbody fusion graft demonstrates bony bridging beyond the confines of the g raft. Hardware appears intact. 2. Moderate LEFT C3-C4 bony foraminal narrowing. 3. Moderate LEFT C4-C5 bony foraminal narrowing. 4. Mild RIGHT C5-C6 bony foraminal narrowing. 5. No significant central canal stenosis.
== END 2022-04-22 14:54 | disposition home or self-care (01) ==
LOC: RAD 14:54
PROVIDERS: PCP Emergency Medicine Emergency Medical Services; Visit Provider Orthopaedic Surgery
DX: M54.2 Cervicalgia (principal); M48.02 Spinal stenosis, cervical region
CPT/HCPCS: 72125

== ENCOUNTER 2022-05-29 08:48 | Outpatient (CLI) | payer OTHER, SELFPAY ==
[2022-05-29 09:41] VITALS: BMI 41.8
--- NOTE | 2022-05-29 09:43 | ECG_ITS ---
[facility] Test Date: 2022-05-29 Pat Name: Rosales Patel Department: Room: Gender: Male Patient Accounts Specialist: Samantha Romero : 1980 Requested By: Ronny Cerda Order Number: [id number] Andrea MD: Purvi Fernández M.D. Interpretive Statements NAME OF STUDY: LEXISCAN SESTAMIBI STRESS TEST INDICATION: Chest Pain, PROCEDURE: At the baseline, the EKG revealed sinus tachycardia with incomplete right bundle branch block. Poor R wave progression. The baseline heart was 104 bpm with a blood pressue of 134/93 mm of Hg Lexiscan was infused over a period of 20 seconds. A total of 0.4 milligrams of Lexiscan was infused. The stress phase was continued for a total of 5 minutes. Heart rate at the end of the stress phase was 102 bpm with a blood pressure 119/91 mm of Hg. The EKG at the peak infusion revealed no significant changes. Sestamibi was injected 20 seconds after the Lexiscan infusion. Heart rate at the end of the recovery phase was 109 bpm with a blood pressure of 135/93 mm of Hg. CONCLUSION: 1. No significant EKG changes with the LexiScan infusion 2. No LexiScan induced chest pain or cardiac arrhythmia 3. Normal blood pressure and heart rate response 4. Sestamibi/sestamibi perfusion scan pending; see separate report. Electronically Signed On 05-30-2022 10:03:34 CDT by Purvi Fernández M.D. [email or web address]
--- NOTE | 2022-05-29 09:44 | NMCV_ITS ---
NM david perf SPECT r/s* [id number] Rosales Patel Age: 41 Gender: M : 1980 Exam Date: 05/29/2022 10:40 Ordering Phys: Ronny Quinn DO Technologist: DEAN Celeste Exam Location: [facility] Indications: ABNORMAL EKG STRESS TEST Please see separate stress test report in [facility] for full findings IMAGE PROTOCOL Rest/Stress 1 Lexiscan Day Radiopharmaceutical Dose (mCi) Administration Site Administered by Rest: Tc-99m 10.7 IV DEAN Pineda Sestamibi Stress:Tc-99m 32.4 IV DEAN Celeste Sestamikay Rest: 29-May-2022 60 Discovery 630 Stress: 29-May-2022 30 Discovery 630 0.4mg Lexiscan. Images obtained in supine and prone position. SPECT RESULTS Technical Quality: Excellent Raw Data Analysis: Normal Image Corrections: No attenuation or motion correction applied Summed Stress Score: 8 Summed Rest Score: 0 Summed Difference Score: 8 PERFUSION FINDINGS There is anterior/anterolateral wall perfusion defect noted on supine images that resolved with prone imaging. No evidence of ischemia seen. Normal myocardial perfusion imaging. FUNCTIONAL RESULTS (calculated via Gated SPECT) Stress Image LV EF (%): 65 Stress EDV (mL):112 TID: 1 Stress ESV (mL):39 FUNCTIONAL FINDINGS: There is normal left ventricular systolic function. IMPRESSIONS 1. Normal myocardial perfusion imaging with no evidence of ischemia. Attenuation artifact is noted in the anterior/anterolateral wall on supine imaging that resolved with prone imaging. 2. LV systolic function is normal. Juan Manuel Cortez MD (Electronically Signed) Final Date: 29 May 2022 14:50 S
[2022-05-29] MEDS: regadenoson 0.4 Mg/5 ml Syringe IVP (11:10)
[2022-05-29 12:39] VITALS: BP 135/93; PULSE 96
== END 2022-05-29 08:49 | disposition home or self-care (01) ==
LOC: CDL 08:51
PROVIDERS: PCP Emergency Medicine Emergency Medical Services; Visit Provider Emergency Medicine Emergency Medical Services
DX: R07.9 Chest pain, unspecified (principal)
CPT/HCPCS: 78452; 93017; A9500; J2785

== ENCOUNTER → 2022-06-05 13:06 | Outpatient (BNVA) | payer OTHER, SELFPAY | PROVIDERS: PCP Emergency Medicine Emergency Medical Services; Visit Provider Orthopaedic Surgery | DX: M54.2 Cervicalgia (principal); Z98.1 Arthrodesis status | CPT/HCPCS: 99213 ==

== ENCOUNTER → 2023-03-12 10:29 | Outpatient (BNVA) | payer OTHER, SELFPAY | PROVIDERS: PCP Emergency Medicine Emergency Medical Services; Referring Provider Emergency Medicine Emergency Medical Services; Visit Provider Specialist | DX: R56.9 Unspecified convulsions (principal) | CPT/HCPCS: 95816 ==

== ENCOUNTER 2023-05-05 10:29 | Emergency (ER) | payer OTHER, SELFPAY ==
[2023-05-05 10:43] VITALS: BP 156/110; PULSE 120; RESP 16; TEMP 36.7; O2SAT 96; BMI 41.8
--- NOTE | 2023-05-05 10:58 | W.ED.NECK ---
HPI - Neck Pain/Injury General: Chief Complaint: Neck Pain/Injury Stated Complaint: neck pain Time Seen by Provider: 05/05/23 10:36 Source: patient Mode of arrival: ambulatory Limitations: no limitations History of Present Illness: Patient is a very nice 42-year-old male who presents to ED today with a complaint of pain to his lower neck and posterior left shoulder. Patient states he has a longstanding history of neck pains. He has underwent 3 previous neck surgeries the last of which being mid [address] Bolanos. He admittedly has continued to suffer from chronic neck pain even following his surgeries. He currently sees Dr. Trujillo with pain management in [place]. Patient states he normally has pain to his C6-C7 region but states over the past few days he has noticed pain slightly lower and near the medial edge of his left scapula. He states pain seems to be worse with movement of the left upper extremity and has noticed some weakness of the arm. He states earlier today began having quite a bit of pain and feels like he almost passed out because of which. He denied chest pain, shortness of breath, dizziness, difficulty breathing. No LOC. MD complaint: neck pain Onset (ago): day(s) Radiation: left shoulder and upper back Severity: severe Quality: burning Duration: constant Relieving factors: none Exacerbating factors: movement of extremity and movement of neck Associated symptoms: Denies headache(s) or nausea Review of Systems Const: Reports: chills and diaphoresis; Denies: fever(s), body aches, fatigue or malaise Eyes: Denies: change in vision, blurry vision, photophobia, floaters or seeing flashes Card: Denies: chest pain Resp: Denies: dyspnea GI: Denies: nausea or vomiting Musc: Reports: neck pain and joint pain (L posterior shoulder); Denies: back pain, extremity pain, extremity swelling or joint swelling Neuro: Reports: weakness in extremities (L upper extremity); Denies: headache(s), numbness in extremities or sensory changes PFS ED PFSH: Medical History Psychiatric care Surgical History H/O neck surgery Family History Grandmother Diabetes Cancer Social History Smoking and tobacco status: current every day smoker cigarettes Packs smoked per day: 0.5 Years cigarettes smoked: 12 Quit status (tobacco): has tried quititng Number of times tried to quit tobacco: 20 Second hand smoke exposure: No Smoking risk assessment/counseling performed?: No Alcohol intake: former Desire information about alcohol rehabilitation?: No Counseling given: No Substance/Drug Use: never Desire information about substance/drug rehabilitation?: No Counseling given: No Lives independently: Yes Physical Exam Const: COMMON NORMALS: no acute distress, patient oriented x3, no limitations, alert and well nourished GENERAL APPEARANCE: cooperative NUTRITIONAL APPEARANCE: obese ORIENTATION/CONSCIOUSNESS: Yes awake, Yes oriented to person, Yes oriented to place and Yes oriented to time HENMT: COMMON NORMALS: normocephalic and atraumatic HEAD & SCALP: normal to inspection, normocephalic and atraumatic FACE & SINUS: normal facial exam Eye: COMMON NORMALS: Equal, round and reactive pupils present and EOMs intact bilaterally GENERAL EYE: appearance normal, both eyes and all related structures and normal light reflex PUPIL: Yes Equal, round and reactive pupils present DIRECT OPHTHALMOSCOPY: Yes normal light reflex Neck/C-Spine: COMMON NORMALS: full ROM, no lymphadenopathy, supple and no meningeal signs GENERAL: Yes other (posterior large midline cervical scar from previous surgeries) CERVICAL SPINE: Yes cervical ROM normal, Yes Cervical spine tenderness (lower cervical spine-states this is chronic), No step off deformity and No Lhermitte's sign positive Resp: COMMON NORMALS: normal respiratory effort and clear to auscultation bilaterally AUSCULTATION: clear to auscultation bilaterally Cardio: COMMON NORMALS: regular rate and regular rhythm RATE: regular rate RHYTHM: regular rhythm Back/Pelvis: BACK IMAGE (MALE): 1. reproducible pain Extremity: COMMON NORMALS: normal to inspection, capillary refill normal, no joint enlargement, no clubbing, cyanosis or edema, no calf tenderness and no pedal edema GENERAL: Yes normal exam except as noted LEFT UPPER EXTREMITY: Yes shoulder joint (ROM of L shoulder causes pain to medial edge of scapula) Left shoulder joint: Yes neurovascular exam (normal) Neuro: COMMON NORMALS: patient oriented x3, moves all extremities, no focal motor deficits, no sensory deficits noted and gait normal SENSORIUM/ORIENTATION: Yes alert, Yes oriented to person, Yes oriented to place and Yes oriented to time MENINGEAL SIGNS: Yes no meningeal signs MOTOR EXAM: Abnormal motor strength present (decreased L upper extremity due to pain) Skin: COMMON NORMALS: no rashes or lesions noted GENERAL SKIN EXAM: no rashes or lesions noted Course Vital Signs: Vital signs: Vital Signs Temperature 98.1 F 05/05/23 10:43 Pulse Rate 122 H 05/05/23 13:06 Respiratory Rate 16 05/05/23 11:34 Blood Pressure 130/101 05/05/23 13:06 Pulse Oximetry 92 05/05/23 13:06 Oxygen Delivery Me thod Room Air 05/05/23 10:43 MDM - Neck Pain/Injury Medical Decision Making CT scan today showing no significant changes when compared to CT performed 03/2022. Bloodwork is reassuring. He has a normal white count. Scantly elevated inflammatory markers. Report feeling better after IV pain medications, muscle relaxers, steroids. Pain is reproducible. Has an appointment with pain management next week. He can also follow up with PCP in the meantime. Return to ED precautions given. Lab Data 05/05/23 11:17 Laboratory Results WBC 8.83 10^3/uL (3.29-11.43) 05/05/23 11:17 RBC 5.35 10^6/uL (3.85-5.65) 05/05/23 11:17 Hgb 16.20 g/dL (11.27-16.99) 05/05/23 11:17 Hct 48.8 % (37-53) 05/05/23 11:17 MCV 91.2 fl (82-101) 05/05/23 11:17 MCH 30.3 pg (27-33) 05/05/23 11:17 MCHC 33.2 g/dL (30-55) 05/05/23 11:17 RDW 12.7 % (12.1-15.1) 05/05/23 11:17 Plt Count 295 10^3/cmm (157-399) 05/05/23 11:17 MPV 10.2 fL (7.4-10.4) 05/05/23 11:17 Neut % (Auto) 70.4 % 05/05/23 11:17 Lymph % (Auto) 22.1 % 05/05/23 11:17 [place] % (Auto) 5.1 % 05/05/23 11:17 Eos % (Auto) 1.5 % 05/05/23 11:17 Baso % (Auto) 0.6 % 05/05/23 11:17 Neut # (Auto) 6.22 10^3/uL (1.8-7.7) 05/05/23 11:17 Lymph # (Auto) 2.0 10^3/uL (0.8-4.8) 05/05/23 11:17 [place] # (Auto) 0.5 10^3/uL (0.2-0.9) 05/05/23 11:17 Eos # (Auto) 0.1 10^3/uL (0.0-0.8) 05/05/23 11:17 Baso # (Auto) 0.1 10^3/uL (0.0-0.1) 05/05/23 11:17 Nucleated RBC % (auto) 0 % 05/05/23 11:17 Nucleated RBCs # 0.0 /100WBC 05/05/23 11:17 ESR 19 mm/hr (0-10) H 05/05/23 11:17 C-Reactive Protein 6.1 mg/L (0.0-4.9) H 05/05/23 11:17 Discharge Plan Discharge Patient Disposition: Home Clinical Impression: Cervical radiculopathy Condition: Stable Prescriptions: New methocarbamol 500 mg tablet 1,000 mg PO Q8H Qty: 30 0RF Medrol (Neymar) 4 mg tablets,dose pack See Rx Instructions .ROUTE .COMPLEX Qty: 21 0RF Rx Instructions: orally per package directions Continued EC-Naproxen 500 mg tablet,delayed release (DR/EC) 500 mg PO BID Qty: 20 0RF Discontinued cyclobenzaprine 10 mg tablet 10 mg PO TID No Action rosuvastatin 10 mg tablet 10 mg PO DAILY lisinopril 40 mg tablet 40 mg PO DAILY clonidine HCl 0.1 mg tablet 0.1 mg PO BID Algal [place]-3 DHA 200 mg capsule 1,000 mg PO DAILY trazodone 100 mg tablet 200 mg PO .HS PRN (Reason: insomnia) Qty: 60 2RF duloxetine [Cymbalta] 60 mg capsule,delayed release(DR/EC) 120 mg PO DAILY Qty: 60 2RF bupropion HCl [Wellbutrin XL] 150 mg tablet extended release 24 hr 150 mg PO QAM Qty: 30 2RF Discharge Orders: Discharge ED (Routine); Ordered 05/05/23 Ordered By: Latasha Avila Referrals: Ronny Quinn, [Primary Care Provider] - Activity Restrictions/Additional Instructions: As we discussed you may try additional therapies in addition to medications you were prescribed today including ice, heat, topical anti-inflammatory and lidocaine gels, lidocaine patches, etc. Please follow-up with your pain management provider next week as scheduled. You need to return to the emergency department for worsening or uncontrollable pain, trouble walking, worsening weakness or loss of use of upper extremity, severe headache, fevers, generally feeling worse or unwell or any other conerns you may have. I hope you begin to feel better soon. Coding Level of Care Code ED [employer] Unix Engineer for Josh Talamantes
--- NOTE | 2023-05-05 11:18 | CT_ITS ---
WS: [id number] CT CERVICAL SPINE HISTORY: neck/L post shoulder pain, shock sensations, trouble w/ gait TECHNIQUE: Contiguous 2.0 mm axial imaging performed through the entire cervical spine. Sagittal and coronal reformats also performed. All CT scans at [facility] use at least one of these dose o ptimization techniques: automated exposure control; mA and/or kV adjustment per patient size (include s targeted exams where dose is matched to clinical indication); or iterative reconstruction. DLP: 271.85 mGy.cm COMPARISON: 04/22/2022 Mild straightening of the normal cervical lordosis. Postoperative changes of anterior fusion with int erbody fusion at C5-6 are stable. Posterior laminar fusion is also noted unchanged. No change in the hardware placement. C2-C3: Normal. C3-C4: Moderate LEFT foraminal osteophyte with mild foraminal narrowing. C4-C5: Mild osteophytic ridging similar to the prior study. Moderate bilateral foraminal narrowing. C5-C6: Moderate bilateral foraminal narrowing RIGHT greater than LEFT. Posterior laminectomy defect. C6-C7: Osteophytic ridging encroaching upon the ventral canal and foramina. Mild central and foramina l stenosis. C7-T1: Mild foraminal central stenosis. Soft tissues are normal. Lung apices are clear. IMPRESSION: 1. No acute interval change since the prior CT of 04/22/2022. 2. Anterior and posterior cervical fusion at C5-6. 3. Osteophytic ridging throughout the cervical spine from C3-4 to C7-T1 as described above. Foraminal stenoses and mild central stenoses have not significantly changed.
[2023-05-05 11:22] LABS: Basophils # 0.1 10^3/uL (0.0-0.1); Basophils % 0.6 %; Eosinophils # 0.1 10^3/uL (0.0-0.8); Eosinophils % 1.5 %; Hematocrit 48.8 % (37-53); Lymphocytes % 22.1 %; Mean Corpuscular HGB Conc 33.2 g/dL (30-55); Mean Corpuscular Hemoglobin 30.3 pg (27-33); Mean Corpuscular Volume 91.2 fl (82-101); Mean Platelet Volume 10.2 fL (7.4-10.4); Monocytes # 0.5 10^3/uL (0.2-0.9); Monocytes % 5.1 %; Neutrophils # 6.22 10^3/uL (1.8-7.7); Neutrophils % 70.4 %; Nucleated Red Blood Cells % 0 %; Platelet Count 295 10^3/cmm (157-399); Red Blood Count 5.35 10^6/uL (3.85-5.65); Red Cell Distribution Width 12.7 % (12.1-15.1); White Blood Count 8.83 10^3/uL (3.29-11.43)
[2023-05-05 11:34] VITALS: RESP 16
[2023-05-05 11:34] LABS: Erythrocyte Sedimentation Rate 19 mm/hr (0-10)
[2023-05-05] MEDS: morphine 4 mg/mL SDV 1 mL IVP (11:34)
[2023-05-05] MEDS: orphenadrine 30 mg/mL Inj 2 mL 60 MG IVP (11:37)
[2023-05-05 11:40] LABS: C Reactive Protein 6.1 mg/L (0.0-4.9)
[2023-05-05] MEDS: dexamethasone 10 mg/mL INJ IVP (11:40)
[2023-05-05 13:06] VITALS: BP 130/101; PULSE 122; O2SAT 92
== END 2023-05-05 12:55 | disposition home or self-care (01) ==
PROVIDERS: Emergency Provider Physician Assistant; PCP Emergency Medicine Emergency Medical Services
DX: M54.12 Radiculopathy, cervical region (principal); F17.210 Nicotine dependence, cigarettes, uncomplicated
CPT/HCPCS: 36415; 72125; 85025; 85651; 86140; 96374; 96375; 99285; J1100; J2270; J2360

== ENCOUNTER 2023-07-24 12:30 | Emergency (ER) | payer OTHER, SELFPAY ==
[2023-07-24 12:49] VITALS: BP 177/138; PULSE 99; RESP 17; TEMP 36.6; O2SAT 96; BMI 39.0
[2023-07-24 13:06] VITALS: BP 170/120
[2023-07-24 13:48] VITALS: BP 178/107; PULSE 94; O2SAT 100
[2023-07-24 14:03] LABS: Basophils % 0.5 %; Eosinophils # 0.2 10^3/uL (0.0-0.8); Eosinophils % 2.1 %; Hematocrit 45.9 % (37-53); Lymphocytes # 2.3 10^3/uL (0.8-4.8); Lymphocytes % 30.8 %; Mean Corpuscular HGB Conc 33.3 g/dL (30-55); Mean Corpuscular Hemoglobin 30.2 pg (27-33); Mean Corpuscular Volume 90.5 fl (82-101); Mean Platelet Volume 9.6 fL (7.4-10.4); Monocytes # 0.5 10^3/uL (0.2-0.9); Monocytes % 6.2 %; Neutrophils # 4.48 10^3/uL (1.8-7.7); Neutrophils % 60.1 %; Nucleated Red Blood Cells % 0 %; Platelet Count 379 10^3/cmm (157-399); Red Blood Count 5.07 10^6/uL (3.85-5.65); Red Cell Distribution Width 12.8 % (12.1-15.1); White Blood Count 7.46 10^3/uL (3.29-11.43)
[2023-07-24 14:27] LABS: Alanine Aminotransferase 13 U/L (0-41); Albumin Level 4.4 g/dL (3.5-5.2); Alkaline Phosphatase 98 U/L (40-130); Anion Gap 15.1 (5-19); Aspartate Amino Transferase 12 U/L (0-40); Blood Urea Nitrogen 12 mg/dL (6-20); Calcium 9.4 mg/dL (8.5-10.5); Carbon Dioxide 25 mmol/L (22-29); Chloride 99 mmol/L (98-107); Globulin 2.9 g/dL (1.3-4.6); Glucose 109 mg/dL (65-115); Osmolality Calculated 280 mOsm/kg (285-295); Potassium 4.1 mmol/L (3.5-5.1); Sodium 135 mmol/L (136-145); Total Bilirubin 0.2 mg/dL (0.15-1.2); Total Protein 7.3 g/dL (6.6-8.7)
--- NOTE | 2023-07-24 14:27 | ED_ITS ---
HPI - Recheck/Abnormal Lab/Rx 2 General: Chief Complaint: Recheck/Abnormal Lab/Rx Stated Complaint: possible infection jaw,va sent Time Seen by Provider: 07/24/23 13:57 History of Present Illness: .Patient presents to the ER with complai nts of probable bone infection due to recent dental work patient had multiple teeth extracted approximately 3 weeks ago on his left lower mandible and up her right maxillary region. they are veryRed irritated painful. Patient says the pain radiates down to his neck on the left side worse than the right. the gums and his areas have not healed over. patient states he saw his doctor Dr. Hawk and he wanted CT scan of his bones to rule out a bone infection. [facility] so he decided to come to the ER. Patient denies any fever chills nausea vomiting diarrhea. Review of Systems 2 General: Reports: 10 or more systems reviewed and unremarkable except in HPI and below PFSH ED 2 PFSH: Medical History Hypertension Surgical History H/O neck surgery Family History Grandmother Diabetes Cancer Social History Smoking and tobacco/nicotine status: current every day tobacco/nicotine user cigarettes Packs smoked per day: 0.5 Years cigarettes smoked: 12 Quit status (tobacco/nicotine): has tried quititng Number of times tried to quit tobacco: 20 Second hand smoke exposure: No Alcohol intake: former Substance/Drug Use: never Lives independently: Yes Physical Exam 2 Const: COMMON NORMALS: no acute distress, average body habitus, patient oriented x3, no limitations, healthy appearing, alert and well nourished HENMT: COMMON NORMALS: normocephalic, atraumatic, hearing grossly normal bilaterally, external ears normal, EAC's normal, TM's normal bilaterally, Normal external nose present and moist oral mucous membranes; oropharynx not normal HEAD & SCALP: normocephalic and atraumatic NOSE: N ormal external nose present EXTERNAL EAR: Yes external ears normal E XTERNAL AUDITORY CANAL: EAC's normal TYMPANIC MEMBRANE: TM's normal bilaterally OTHER: Oral cavity has at least 2 areas nonhealing consistent with his prior surgical wounds in the left mandibular molar region as well as the right upper maxillary canine region. These areas are red irritated. Eye: COMMON NORMALS: Equal, round and reactive pupils present, EOMs intact bilaterally, conjunctivae normal and no scleral icterus CONJUNCTIVA: Yes conjunctivae normal PUPIL: Yes Equal, round and reactive pupils present Neck/C-Spine: COMMON NORMALS: full ROM, supple, no meningeal signs, no JVD and Thyroid normal; negative for no lymphadenopathy (Mild tenderness with lymphadenopathy left greater than right) THYROID: Thyroid normal Chest: COMMONS NORMALS: normal inspection of the chest and normal palpation of entire chest wall Resp: COMMON NORMALS: normal respiratory effort, No retractions, No use of accessory muscles and clear to auscultation bilaterally AUSCULTATION: clear to auscultation bilaterally Cardio: COMMON NORMALS: no JVD, regular rate, regular rhythm, S1 normal heart sound present, S2 normal heart sound present, No gallops present (Cardio), No clicks present (Cardio), No murmurs present (Cardio) and No rub (Cardio) R ATE: regular rate RHYTHM: regular rhythm HEART SOUNDS: S1 normal heart sound present and S2 normal heart sound present GI: COMMON NORMALS: Normal to inspection, nondistended, normoactive bowel sounds present, Soft to palpation, non-tender, No hepatosplenomegaly present and no masses PALPATION: Yes Soft to palpation and Yes No hepatosplenomegaly present Neuro: COMMON NORMALS: patient oriented x3 SENSORIUM/ORIENTATION: Yes alert MENINGEAL SIGNS: Yes no meningeal signs Course 2 Vital Signs: Vital signs: Vital Signs Temperature 98 F 07/24/23 12:49 Pulse Rate 101 H 07/24/23 14:57 Respiratory Rate 17 07/24/23 12:49 Blood Pressure 145/102 07/24/23 14:57 Pulse Oximetry 96 07/24/23 14:57 Oxygen Delivery Me thod Room Air 07/24/23 14:57 MDM - Recheck/Abnormal Lab/Rx Medical Decision Making Patient presents to rule out osteomyelitis secondary to dental procedure as nonsterile healing up. CT scan did not show osteomyelitis and abscess etc. lab work revealed his white count was normal at 7.46 and CRP was only slightly elevated at 6.2. These findings was discussed with the patient who feels comfortable in going home. Patient will be placed on prophylactic antibiotics and referred back to his dentist and/or primary care practitioner for further evaluation and treatment. Differential Diagnosis Unlikely encounter for medication refill, encounter for wound recheck, encounter for recheck of burn, encounter for removal of sutures or warfarin-induced coagulopathy Medical Records I reviewed the patient's medical records. Lab Data I reviewed the patient's lab results. 07/24/23 13:42 07/24/23 13:42 Laboratory Results WBC 7.46 10^3/uL (3.29-11.43) 07/24/23 13:42 RBC 5.07 10^6/uL (3.85-5.65) 07/24/23 13:42 Hgb 15.30 g/dL (11.27-16.99) 07/24/23 13:42 Hct 45.9 % (37-53) 07/24/23 13:42 MCV 90.5 fl (82-101) 07/24/23 13:42 MCH 30.2 pg (27-33) 07/24/23 13:42 MCHC 33.3 g/dL (30-55) 07/24/23 13:42 RDW 12.8 % (12.1-15.1) 07/24/23 13:42 Plt Count 379 10^3/cmm (157-399) 07/24/23 13:42 MPV 9.6 fL (7.4-10.4) 07/24/23 13:42 Neut % (Auto) 60.1 % 07/24/23 13:42 Lymph % (Auto) 30.8 % 07/24/23 13:42 [place] % (Auto) 6.2 % 07/24/23 13:42 Eos % (Auto) 2.1 % 07/24/23 13:42 Baso % (Auto) 0.5 % 07/24/23 13:42 Neut # (Auto) 4.48 10^3/uL (1.8-7.7) 07/24/23 13:42 Lymph # (Auto) 2.3 10^3/uL (0.8-4.8) 07/24/23 13:42 [place] # (Auto) 0.5 10^3/uL (0.2-0.9) 07/24/23 13:42 Eos # (Auto) 0.2 10^3/uL (0.0-0.8) 07/24/23 13:42 Baso # (Auto) 0.0 10^3/uL (0.0-0.1) 07/24/23 13:42 Nucleated RBC % (auto) 0 % 07/24/23 13:42 Nucleated RBCs # 0.0 /100WBC 07/24/23 13:42 Sodium 135 mmol/L (136-145) L 07/24/23 13:42 Potassium 4.1 mmol/L (3.5-5.1) 07/24/23 13:42 Chloride 99 mmol/L (98-107) 07/24/23 13:42 Carbon Dioxide 25 mmol/L (22-29) 07/24/23 13:42 Anion Gap 15.1 (5-19) 07/24/23 13:42 BUN 12 mg/dL (6-20) 07/24/23 13:42 Creatinine 0.6 mg/dL (0.7-1.2) L 07/24/23 13:42 GFR Calculation 147.0 mL/min (90-130) H 07/24/23 13:42 Glucose 109 mg/dL (65-115) 07/24/23 13:42 Calculated Osmolality 280 mOsm/kg (285-295) L 07/24/23 13:42 Lactic Acid 1.3 mmol/L (0.5-2.2) 07/24/23 13:42 Calcium 9.4 mg/dL (8.5-10.5) 07/24/23 13:42 Total Bilirubin 0.2 mg/dL (0.15-1.2) 07/24/23 13:42 AST 12 U/L (0-40) 07/24/23 13:42 ALT 13 U/L (0-41) 07/24/23 13:42 Alkaline Phosphatase 98 U/L (40-130) 07/24/23 13:42 C-Reactive Protein 6.2 mg/L (0.0-4.9) H 07/24/23 13:42 C-Reactive Protein Cancelled 07/24/23 13:42 Total Protein 7.3 g/dL (6.6-8.7) 07/24/23 13:42 Albumin 4.4 g/dL (3.5-5.2) 07/24/23 13:42 Globulin 2.9 g/dL (1.3-4.6) 07/24/23 13:42 All radiology interpretation(s) finalized by discharge Discharge Plan Discharge Patient Disposition: Home Clinical Impression: Encounter for wound re-check Condition: Stable Prescriptions: No Action rosuvastatin 10 mg tablet 10 mg PO DAILY lisinopril 40 mg tablet 40 mg PO DAILY clonidine HCl 0.1 mg tablet 0.1 mg PO BID Algal [place]-3 DHA 200 mg capsule 1,000 mg PO DAILY sulfamethoxazole-trimethoprim [Bactrim DS] 800-160 mg tablet 1 tab PO BID 10 Days Qty: 20 0RF duloxetine [Cymbalta] 60 mg capsule,delayed release(DR/EC) 120 mg PO DAILY Qty: 60 2RF methocarbamol 500 mg tablet 1,000 mg PO Q8H Qty: 30 0RF ibuprofen 800 mg tablet See Rx Instructions .ROUTE .COMPLEX Rx Instructions: 800 mg by mouth every 4 to 6 hours as needed tizanidine 4 mg tablet 4 mg PO QPM meloxicam 15 mg tablet 15 mg PO DAILY PRN (Reason: Pain) oxycodone-acetaminophen 7.5-325 mg tablet 1 tab PO QID PRN (Reason: Pain, Moderate) trazodone 100 mg tablet 200 mg PO BEDTIME PRN (Reason: insomnia) Discharge Orders: Discharge ED (Routine); Ordered 07/24/23 Ordered By: Ron Danielle Referrals: Ronny Quinn DO [Primary Care Provider] - 1 week Patient Instructions: Wound Care (General) Coding Level of Care Code ED Hair Blender for Josh Talamantes
[2023-07-24 14:28] LABS: Lactic Sepsis W/Reflex 1.3 mmol/L (0.5-2.2)
--- NOTE | 2023-07-24 14:32 | CT_ITS ---
WS: [id number] CT NECK TECHNIQUE: Contrast-enhanced CT of the neck with coronal and sagittal reformatted images. CLINICAL INFORMATION: Significant painful lymphadenopathy left greater than right COMPARISON: None. DLP: 378.[address] scans at [facility] use at least one of these dose optimization techniques: automated e xposure control; mA and/or kV adjustment per patient size (includes targeted exams where dose is matc hed to clinical indication); or iterative reconstruction. FINDINGS: Multiple recently extracted teeth from the maxilla. Additional molar extraction in the LEFT posterior mandible with recent postoperative changes. Mild induration in the midline anterior maxill liborio and mandibular soft tissues. No evidence of drainable abscess or fluid collection. Normal posterior nasopharynx. Mild mucosal thickening RIGHT maxillary sinus. Mastoid air cells are we ll aerated. No evidence of supraglottic or glottic mass. Normal subglottic airway. Prior postoperative changes AC DF and posterior fusion C5-6. This is unchanged in appearance since the recent studies. Parotid glands are normal. Submandibular glands are normal. IMPRESSION: 1. Recent postoperative changes tooth extraction involving the maxilla and LEFT posterior mandible. No evidence of bony destruction to indicate osteomyelitis. 2. Mild induration in the anterior maxillary and mandibular soft tissues may be postoperative or inf lammatory. No evidence of drainable abscess or fluid collection. 3. No cervical lymphadenopathy. 4. Normal salivary glands. 5. Mucosal thickening RIGHT maxillary sinus. 6. No other acute findings.
[2023-07-24 14:39] LABS: C Reactive Protein 6.2 mg/L (0.0-4.9)
[2023-07-24] MEDS: iohexol 350 mg/mL 500 mL Btl (per mL) IV (14:50)
[2023-07-24 14:55] VITALS: BP 145/102
[2023-07-24] MEDS: cloNIDine 0.1 mg Tablet PO (14:55)
[2023-07-24 14:57] VITALS: BP 145/102; PULSE 101; O2SAT 96
== END 2023-07-24 16:20 | disposition home or self-care (01) ==
PROVIDERS: Physician Assistant; Emergency Provider Emergency Medicine; PCP Emergency Medicine Emergency Medical Services
DX: Z48.00 Encounter for change or removal of nonsurgical wound dressing (principal); F17.210 Nicotine dependence, cigarettes, uncomplicated; I10 Essential (primary) hypertension
CPT/HCPCS: 70491; 80048; 80053; 83605; 85025; 86140; 99285; Q9967

== ENCOUNTER 2024-01-14 21:15 | Emergency (ER) | payer MEDICARE, SELFPAY ==
[2024-01-14 21:16] VITALS: BP 118/74; PULSE 112; RESP 17; TEMP 36.7; O2SAT 94; BMI 37.6
--- NOTE | 2024-01-14 21:36 | ECG_ITS ---
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 Measurements Intervals [place] Rate: 114 P: 47 [place]: 164 QRS: 15 QRSD: 112 T: 45 QT: 335 QTc: 462 Interpretive Statements SINUS TACHYCARDIA INDETERMINATE AXIS INCOMPLETE RIGHT BUNDLE BRANCH BLOCK [90+ ms QRS DURATION, TERMINAL R IN V1/V2, 40+ ms S IN I/aVL/V4/V5/V6] NONSPECIFIC ST ELEVATION [0.05+ mV ST ELEVATION] No previous ECG available for comparison Electronically Signed On 01-15-2024 13:09:18 CDT by Juan Manuel Cortez M.D. [id number]
--- NOTE | 2024-01-14 21:46 | XRR_ITS ---
PROCEDURE INFORMATION: Exam: XR Chest Exam date and time: 01/14/2024 9:54 PM Age: 43 years old Clinical indication: Pain; Shortness of breath; Chest pressure; Prior surgery; Surgery date: 6+ months; Surgery type: Cervical spine; Additional info: Chest pain TECHNIQUE: Imaging protocol: Radiologic exam of the chest. Views: 1 view. COMPARISON: CT neck w con* [id number] 07/24/2023 2:38 PM FINDINGS: Tubes, catheters and devices: ACDF and posterior instrumentation of the lower cervical spine of the lower cervical spine. Lungs: Unremarkable. No consolidation. Pleural spaces: Unremarkable. No pleural effusion. No pneumothorax. Heart/Mediastinum: Borderline cardiomegaly. Bones/joints: Mild degenerative disease of bilateral acromioclavicular joints. XR/XR chest 1V portable [id number] IMPRESSION: No acute cardiopulmonary process.
[2024-01-14 22:13] LABS: Basophils # 0.1 10^3/uL (0.0-0.1); Basophils % 0.5 %; Eosinophils # 0.2 10^3/uL (0.0-0.8); Hematocrit 41.9 % (37-53); Lymphocytes # 2.2 10^3/uL (0.8-4.8); Lymphocytes % 23.8 %; Mean Corpuscular HGB Conc 33.9 g/dL (30-55); Mean Corpuscular Volume 88.4 fl (82-101); Monocytes # 0.7 10^3/uL (0.2-0.9); Monocytes % 7.3 %; Neutrophils # 6.16 10^3/uL (1.8-7.7); Neutrophils % 66.1 %; Nucleated Red Blood Cells % 0 %; Platelet Count 265 10^3/cmm (157-399); Red Blood Count 4.74 10^6/uL (3.85-5.65); Red Cell Distribution Width 12.3 % (12.1-15.1); White Blood Count 9.33 10^3/uL (3.29-11.43)
--- NOTE | 2024-01-14 22:19 | ED_ITS ---
HPI - General Adult 2 General: Chief complaint: General Medical Stated complaint: ADVERSE REACTION Time Seen by Provider: 01/14/24 21:30 History of Present Illness: Patient presents to the ER by EMS secondary to adverse reaction by eating a THC gummy and taking his pain pill at the same time. Patient is a for like he had a both a lightening in his chest shooting out of his arms and, I got frozen the body spasm so bad I thought I patient at that time did report being short of breath although this has improved now, patient is almost back to normal, patient does have chronic neck pain and spasms he has had multiple neck surgeries with his last one being in approximately 2021, per the patient has no history of cardiac issues. Review of Systems 2 General: Reports: 10 or more systems reviewed and unremarkable except in HPI and below PFSH ED 2 PFSH: Medical History Hypertension Surgical History H/O neck surgery Family History Grandmother Diabetes Cancer Social History Smoking and tobacco/nicotine status: current every day tobacco/nicotine user cigarettes Packs smoked per day: 0.5 Years cigarettes smoked: 12 Quit status (tobacco/nicotine): has tried quititng Number of times tried to quit tobacco: 20 Second hand smoke exposure: No Alcohol intake: former Substance/Drug Use: never Lives independently: Yes Physical Exam 2 Const: COMMON NORMALS: no acute distress, average body habitus, patient oriented x3, no limitations, healthy appearing, alert and well nourished HENMT: COMMON NORMALS: normocephalic, atraumatic, hearing grossly normal bilaterally, external ears normal, Normal external nose present, moist oral mucous membranes and oropharynx normal HEAD & SCALP: normocephalic and atraumatic NOSE: Normal external nose present EXTERNAL EAR: Yes external ears normal Neck/C-Spine: COMMON NORMALS: no JVD Chest: COMMONS NORMALS: normal inspection of the chest and normal palpation of entire chest wall Resp: COMMON NORMALS: normal respiratory effort, No retractions, No use of accessory muscles and clear to auscultation bilaterally AUSCULTATION: clear to auscultation bilaterally Cardio: COMMON NORMALS: no JVD, regular rate, regular rhythm, S1 normal heart sound present, S2 normal heart sound present, No gallops present (Cardio), No clicks present (Cardio), No murmurs present (Cardio) and No rub (Cardio) R ATE: regular rate RHYTHM: regular rhythm HEART SOUNDS: S1 normal heart sound present and S2 normal heart sound present GI: COMMON NORMALS: Normal to inspection, nondistended, normoactive bowel sounds present, Soft to palpation, non-tender, No hepatosplenomegaly present and no masses PALPATION: Yes Soft to palpation and Yes No hepatosplenomegaly present Neuro: COMMON NORMALS: patient oriented x3 SENSORIUM/ORIENTATION: Yes alert Course 2 Vital Signs: Vital signs: Vital Signs Temperature 98.0 F 01/14/24 21:16 Pulse Rate 91 01/15/24 02:00 Respiratory Rate 18 01/15/24 02:00 Blood Pressure 104/60 01/15/24 02:00 Pulse Oximetry 92 01/15/24 02:00 Oxygen Delivery Me thod Room Air 01/14/24 21:16 MDM - General Adult Medical Decision Making Patient was worked up in a standard chest pain fashion with serial EKGs, lab work, chest x-ray and urinalysis with urine drug screen, all of which essentially came back benign, urine drug screen is positive for opiates and THC, these results was discussed with patient and family patient remains chest pain- free patient be discharged home to follow-up with his PCP. Lab Data 01/14/24 22:00 01/14/24 22:00 Radiology Impressions Chest X-Ray 01/14/24 21:46 IMPRESSION: No acute cardiopulmonary process. Laboratory Results WBC 9.33 10^3/uL (3.29-11.43) 01/14/24 22:00 RBC 4.74 10^6/uL (3.85-5.65) 01/14/24 22:00 Hgb 14.20 g/dL (11.27-16.99) 01/14/24 22:00 Hct 41.9 % (37-53) 01/14/24 22:00 MCV 88.4 fl (82-101) 01/14/24 22:00 MCH 30.0 pg (27-33) 01/14/24 22:00 MCHC 33.9 g/dL (30-55) 01/14/24 22:00 RDW 12.3 % (12.1-15.1) 01/14/24 22:00 Plt Count 265 10^3/cmm (157-399) 01/14/24 22:00 MPV 10.0 fL (7.4-10.4) 01/14/24 22:00 Neut % (Auto) 66.1 % 01/14/24 22:00 Lymph % (Auto) 23.8 % 01/14/24 22:00 [place] % (Auto) 7.3 % 01/14/24 22:00 Eos % (Auto) 2.0 % 01/14/24 22:00 Baso % (Auto) 0.5 % 01/14/24 22:00 Neut # (Auto) 6.16 10^3/uL (1.8-7.7) 01/14/24 22:00 Lymph # (Auto) 2.2 10^3/uL (0.8-4.8) 01/14/24 22:00 [place] # (Auto) 0.7 10^3/uL (0.2-0.9) 01/14/24 22:00 Eos # (Auto) 0.2 10^3/uL (0.0-0.8) 01/14/24 22:00 Baso # (Auto) 0.1 10^3/uL (0.0-0.1) 01/14/24 22:00 Nucleated RBC % (auto) 0 % 01/14/24 22:00 Nucleated RBCs # 0.0 /100WBC 01/14/24 22:00 Sodium 135 mmol/L (136-145) L 01/14/24 22:00 Potassium 4.0 mmol/L (3.5-5.1) 01/14/24 22:00 Chloride 101 mmol/L (98-107) 01/14/24 22:00 Carbon Dioxide 24 mmol/L (22-29) 01/14/24 22:00 Anion Gap 14.0 (5-19) 01/14/24 22:00 BUN 12 mg/dL (6-20) 01/14/24 22:00 Creatinine 0.9 mg/dL (0.7-1.2) 01/14/24 22:00 GFR Calculation 92.1 mL/min (90-130) 01/14/24 22:00 Glucose 138 mg/dL (65-115) H 01/14/24 22:00 Calculated Osmolality 282 mOsm/kg (285-295) L 01/14/24 22:00 Calcium 8.8 mg/dL (8.5-10.5) 01/14/24 22:00 Total Bilirubin 0.2 mg/dL (0.15-1.2) 01/14/24 22:00 AST 10 U/L (0-40) 01/14/24 22:00 ALT 13 U/L (0-41) 01/14/24 22:00 Alkaline Phosphatase 80 U/L (40-130) 01/14/24 22:00 Troponin T Baseline 7 ng/L (0-15) 01/14/24 22:00 Troponin T 120 Minute 6.95 ng/L (0-15) 01/15/24 00:10 Delta Troponin T -0.05 ABS# (0-10) L 01/15/24 00:10 Total Protein 5.8 g/dL (6.6-8.7) L 01/14/24 22:00 Albumin 3.8 g/dL (3.5-5.2) 01/14/24 22:00 Globulin 2.0 g/dL (1.3-4.6) 01/14/24 22:00 Urine Color Dark yellow (Yellow) 01/14/24 23:18 Urine Appearance Slightly cloudy (CLEAR) 01/14/24 23:18 Urine pH 5 (5-7) 01/14/24 23:18 Ur Specific [place] 1.030 (1.005-1.030) 01/14/24 23:18 Urine Protein 1+ (Negative) H 01/14/24 23:18 Urine Glucose (UA) Norm (Normal) 01/14/24 23:18 Urine Ketones 1+ (Negative) H 01/14/24 23:18 Urine Blood Neg (Negative) 01/14/24 23:18 Urine Nitrate Negative (Negative) 01/14/24 23:18 Urine Bilirubin 1+ (Negative) H 01/14/24 23:18 Urine Urobilinogen 1 mg/dL (Negative) H 01/14/24 23:18 Ur Leukocyte Esterase Negative (Negative) 01/14/24 23:18 Urine RBC 0-4 /hpf (0-2) H 01/14/24 23:18 Urine WBC 0-4 /hpf (0-5) H 01/14/24 23:18 Ur Squamous Epith Cells None /hpf (0-5) 01/14/24 23:18 Amorphous Sediment Not Reportable 01/14/24 23:18 Urine Bacteria Trace /hpf (NONE) 01/14/24 23:18 Urine Mucus 3+ /hpf 01/14/24 23:18 Urine Opiates Screen Positive ng/mL (Negative) H 01/14/24 23:18 Ur Barbiturates Screen Negative ng/mL (Negative) 01/14/24 23:18 Ur Phencyclidine Scrn Negative ng/mL (Negative) 01/14/24 23:18 Ur Amphetamines Screen Negative ng/mL (Negative) 01/14/24 23:18 U Benzodiazepines Scrn Negative ng/mL (Negative) 01/14/24 23:18 Urine Cocaine Screen Negative ng/mL (Negative) 01/14/24 23:18 U Marijuana (THC) Screen Positive ng/mL (Negative) H 01/14/24 23:18 All radiology interpretation(s) finalized by discharge Discharge Plan Discharge Patient Disposition: Home Clinical Impression: Chronic neck pain Chest pain Qualifiers: Chest pain type: unspecified Qualified Code(s): R07.9 - Chest pain, unspecified Condition: Stable Prescriptions: No Action rosuvastatin 10 mg tablet 10 mg PO DAILY lisinopril 40 mg tablet 40 mg PO DAILY clonidine HCl 0.1 mg tablet 0.1 mg PO BID Algal [place]-3 DHA 200 mg capsule 1,000 mg PO DAILY duloxetine [Cymbalta] 60 mg capsule,delayed release(DR/EC) 120 mg PO DAILY Qty: 60 2RF prednisone 20 mg tablet 20 mg PO DAILY Qty: 20 1RF Rx Instructions: 3 tabs a day for 3 days then 2 tabs a day for 3 days then 1 tab a day for 5 days methocarbamol 500 mg tablet 1,000 mg PO Q8H Qty: 30 0RF ibuprofen 800 mg tablet See Rx Instructions .ROUTE .COMPLEX Rx Instructions: 800 mg by mouth every 4 to 6 hours as needed tizanidine 4 mg tablet 4 mg PO QPM meloxicam 15 mg tablet 15 mg PO DAILY PRN (Reason: Pain) oxycodone-acetaminophen 7.5-325 mg tablet 1 tab PO QID PRN (Reason: Pain, Moderate) trazodone 100 mg tablet 200 mg PO BEDTIME PRN (Reason: insomnia) Discharge Orders: Discharge ED (Routine); Ordered 01/15/24 Ordered By: Ron Danielle Referrals: Zeyad Roman FNP [Primary Care Provider] - 1 week Patient Instructions: Chest Pain (ED), Adverse Drug Reaction (ED) Activity Restrictions/Additional Instructions: Your physical exam in the ER as well as your workup that included labs, chest x- ray, urinalysis was essentially benign. Is felt that your symptoms may be due to reaction from the THC and the pain medicine. Please follow-up with your family practitioner within next 7 days for further evaluation and treatment. Thank you for choosing [facility] for your healthcare needs today. Please realize that you were seen in the emergency department and that we are providing you with an emergency medical screening exam and this may not be a complete and all exclusive of all testing and/or medical workup we may need to determine your element or severity of your illness. It is very important that you follow-up as instructed with your primary care provider or specialist for the additional evaluation and to discuss your medical treatment plan. You may return to the emergency department should you have concerns or if your condition changes or worsens in any way. Coding Level of Care Code ED Manager Therapy for Josh Talamantes
[2024-01-14 22:32] LABS: Troponin(5th) Baseline 7 ng/L (0-15)
[2024-01-14 22:33] LABS: Alanine Aminotransferase 13 U/L (0-41); Albumin Level 3.8 g/dL (3.5-5.2); Alkaline Phosphatase 80 U/L (40-130); Aspartate Amino Transferase 10 U/L (0-40); Blood Urea Nitrogen 12 mg/dL (6-20); Calcium 8.8 mg/dL (8.5-10.5); Carbon Dioxide 24 mmol/L (22-29); Chloride 101 mmol/L (98-107); Creatinine Clr Calc Pharmacy 140.9614; Glomerular Filtration Rate 92.1 mL/min (90-130); Glucose 138 mg/dL (65-115); Osmolality Calculated 282 mOsm/kg (285-295); Sodium 135 mmol/L (136-145); Total Bilirubin 0.2 mg/dL (0.15-1.2); Total Protein 5.8 g/dL (6.6-8.7)
[2024-01-14 23:00] VITALS: BP 93/47; PULSE 87; RESP 16; O2SAT 96
[2024-01-14 23:31] LABS: Blood Urine Neg (Negative); Glucose Urine UA Norm (Normal); Ketones Urine 1+ (Negative); Nitrate Urine Negative (Negative); Protein Urine 1+ (Negative); Urine Appearance Slightly Cloudy (CLEAR); Urine Color Dark Yellow (Yellow); pH Urine 5 (5-7)
[2024-01-14 23:32] LABS: Add Urine Microscopic? YES; Bilirubin Urine 1+ (Negative); Leukocyte Esterase Urine Negative (Negative); Urobilinogen Urine 1 mg/dL (Negative)
[2024-01-14 23:33] LABS: Amphetamines Screen Urine Negative (Negative); Barbiturates Screen Urine Negative (Negative); Benzodiazepines Screen Urine Negative (Negative); Cocaine Screen Urine Negative (Negative); Opiate Screen Urine Positive (Negative); PCP Screen Urine Negative (Negative); THC Screen Urine Positive (Negative)
[2024-01-14 23:38] LABS: Add Urine Culture? No; Bacteria Urine TRACE /hpf; Mucus Urine 3+ /hpf; RBC Urine 0-4 /hpf (0-2); WBC Urine 0-4 /hpf (0-5)
--- NOTE | 2024-01-14 23:46 | ECG_ITS ---
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 Measurements Intervals [place] Rate: 88 P: 44 [place]: 162 QRS: 16 QRSD: 114 T: 33 QT: 361 QTc: 439 Interpretive Statements SINUS RHYTHM INCOMPLETE RIGHT BUNDLE BRANCH BLOCK [90+ ms QRS DURATION, TERMINAL R IN V1/V2, 40+ ms S IN I/aVL/V4/V5/V6] NONSPECIFIC ST ELEVATION [0.05+ mV ST ELEVATION] Compared to ECG 01/14/2024 21:36:43 Sinus tachycardia no longer present Indeterminate axis no longer present ST (T wave) deviation still present Electronically Signed On 01-15-2024 13:11:08 CDT by Juan Manuel Cortez M.D. [id number]
[2024-01-14 23:51] VITALS: BP 116/66; PULSE 91; RESP 16; O2SAT 94
[2024-01-15 00:23] VITALS: BP 106/76; PULSE 95; RESP 16; O2SAT 94
[2024-01-15 00:30] VITALS: BP 116/75; PULSE 88; RESP 16; O2SAT 92
[2024-01-15 01:00] VITALS: BP 120/96; PULSE 99; RESP 16; O2SAT 95
[2024-01-15 01:30] VITALS: BP 120/80; PULSE 96; RESP 16; O2SAT 94
[2024-01-15 01:42] LABS: Troponin 5 2HR 6.95 ng/L (0-15)
[2024-01-15 01:45] LABS: Troponin 5 2HR Delta -0.05 ABS# (0-10)
[2024-01-15 02:00] VITALS: BP 104/60; PULSE 91; RESP 18; O2SAT 92
== END 2024-01-15 02:19 | disposition home or self-care (01) ==
PROVIDERS: Emergency Provider Emergency Medicine; PCP Nurse Practitioner Family
DX: R07.9 Chest pain, unspecified (principal); G89.29 Other chronic pain; M54.2 Cervicalgia; I10 Essential (primary) hypertension; F17.210 Nicotine dependence, cigarettes, uncomplicated
CPT/HCPCS: 36415; 71045; 80053; 80306; 81001; 84484; 85025; 93005; 99285

== ENCOUNTER 2025-07-18 08:13 | Outpatient (CLI) | payer OTHER, SELFPAY ==
--- NOTE | 2025-07-18 08:24 | MR_ITS ---
WS: [id number] MRI CERVICAL SPINE NONCONTRAST TECHNIQUE: Sagittal T1, T2 and STIR imaging. Axial T2, gradient, and fiesta imaging. CLINICAL INFORMATION: CERVICAL RADICULOPATHY COMPARISON: 2020 FINDINGS: Straightening of the normal cervical lordosis.ACDF C5-C7. Cord signal is normal. C2-C3: Mild LEFT bony foraminal narrowing. C3-C4: Moderate LEFT bony foraminal narrowing. Spinal canal is patent. C4-C5: Severe LEFT bony foraminal narrowing. Spinal canal is patent. Uncovertebral joint hypertrophy. Moderate LEFT facet arthropathy. C5-C6: Postoperative changes ACDF. Mild to moderate bilateral bony foraminal narrowing. Spinal canal is patent. C6-C7: Postoperative changes ACDF. Mild to moderate LEFT and mild RIGHT bony foraminal narrowing. Spinal canal is patent. C7-T1: Disc osteophyte complex. Slight effacement of the ventral thecal sac. Mild bilateral bony foraminal narrowing. T1-T2: Normal. Visualized brain stem structures: Normal. Prevertebral soft tissues: Normal. MR/MR cervical spin wo con* [id number] IMPRESSION: 1. Straightening of the normal cervical lordosis. ACDF C5-6. 2. Cord signal is normal. No high-grade central canal stenosis. 3. Severe LEFT C4-5 bony foraminal narrowing slightly progressed. 4. Moderate LEFT bony foraminal narrowing C3-4, mild to moderate bilateral C5- 6, and mild to moderate LEFT C6-7
== END 2025-07-18 08:14 | disposition home or self-care (01) ==
LOC: RAD 08:16
PROVIDERS: PCP Nurse Practitioner Family; Visit Provider Student in an Organized Health Care Education/Training Program
DX: M54.12 Radiculopathy, cervical region (principal); M46.92 Unspecified inflammatory spondylopathy, cervical region; M50.221 Other cervical disc displacement at C4-C5 level; M99.71 Connective tissue and disc stenosis of intervertebral foramina of cervical region; Z98.1 Arthrodesis status; M50.322 Other cervical disc degeneration at C5-C6 level; M50.223 Other cervical disc displacement at C6-C7 level; M25.78 Osteophyte, vertebrae; M50.33 Other cervical disc degeneration, cervicothoracic region; M48.03 Spinal stenosis, cervicothoracic region
CPT/HCPCS: 72141